=== PATIENT | male | born 1980 | race Caucasian/White ===

== ENCOUNTER 2018-11-14 06:49 | Emergency (ER) | payer BC, OTHER ==
[~2018-11-14] VITALS: Ht 167.6 cm; Wt 77.1 kg
--- NOTE | 2018-11-14 07:14 | ED Abdominal Pain ---
General Chief Complaint: Abdominal/GI Problems Stated Complaint: ABD PAIN Nursing Triage Note: PT COMPLAINING OF ABD PAIN, NAUSEA AND A HEADACHE SINCE YESTERDAY MORNING Sepsis Screen: No Definite Risk Source of Information: Patient Exam Limitations: No Limitations History of Present Illness Date Seen by Provider: Nov 14, 2018 Time Seen by Provider: 19:03 Initial Comments The patient is a pleasant 38-year-old male who presents for evaluation of upper abdominal pain, nausea, and headache since yesterday morning. He reports a history of hyperlipidemia, hypertension, and diabetes. He states he has not taken his diabetes medication or his blood pressure medication in about 2 months. He reports he has not checked his blood sugar recently. He denies any past abdominal surgeries. His pain is primarily in the epigastric region but also somewhat in the right upper quadrant and left upper quadrant. He smokes cigarettes and states that he is slightly short of breath. He denies chest pain, diaphoresis, radiation of abdominal pain, palpitations, dizziness, diarrhea, hematemesis, rectal bleeding, fevers or chills, urinary complaints, or syncope. He states he tried a home Zofran but it did not help and also tried food and cold liquids and this did not seem to help. In fact he states that food seems to make the pain worse. Timing/Duration: 1-2 Days Severity/Quality: Moderate Location: RUQ, LUQ, Epigastric (primarily) Radiation: No Radiation Activities at Onset: None Modifying Factors: Improves With Eating (made the pain worse) Associated Symptoms: Headache, Nausea/Vomiting (nausea only) Allergies and Home Medications Allergies Coded Allergies: No Known Drug Allergies (Unverified , 11/14/18) Patient Home Medication List Home Medication List Reviewed: Yes Review of Systems Review of Systems Constitutional: no symptoms reported EENTM: No Symptoms Reported Respiratory: No Symptoms Reported Cardiovascular: No Symptoms Reported Gastrointestinal: Abdominal Pain, Nausea Genitourinary: No Symptoms Reported Musculoskeletal: no symptoms reported Skin: no symptoms reported Psychiatric/Neurological: Headache Endocrine: No Symptoms Reported Hematologic/Lymphatic: No Symptoms Reported All Other Systems Reviewed Negative Unless Noted: Yes Past Agbhzlq-Zoghpu-Enywua Hx Past Med/Social Hx: Reviewed Nursing Past Med/Soc Hx Patient Social History Alcohol Use: Denies Use Recreational Drug Use: No Smoking Status: Current Everyday Smoker Type Used: Cigarettes 2nd Hand Smoke Exposure: No Recent Foreign Travel: No Contact w/Someone Who Travel: No Recent Infectious Disease Expo: No Recent Hopitalizations: No Physical Abuse: No Sexual Abuse: No Past Medical History Surgeries: No Respiratory: No Cardiac: Yes High Cholesterol, Hypertension Neurological: No Genitourinary: No Gastrointestinal: No Musculoskeletal: No Endocrine: Yes Diabetes, Non-Insulin dep HEENT: No Cancer: No Psychosocial: No Integumentary: No Blood Disorders: No Physical Exam Vital Signs Vital Signs - First Documented 11/14/18 06:56 Temp 98.0 Pulse 105 Resp 18 B/P (MAP) 180/99 (126) Pulse Ox 95 O2 Delivery Room Air Capillary Refill : Less Than 3 Seconds Height/Weight/BMI Height: 5'6.00" Weight: 170lbs. oz. 77.568030qg; BMI Method:Stated General Appearance: WD/WN, no apparent distress HEENT: PERRL/EOMI, normal ENT inspection Neck: non-tender, full range of motion, supple, normal inspection Respiratory: chest non-tender, lungs clear, normal breath sounds, no respiratory distress Cardiovascular: no edema, no gallop, no JVD, no murmur, tachycardia Gastrointestinal: normal bowel sounds, soft, no organomegaly, no pulsatile mass, tenderness (epigastric - moderate, LUQ/RUQ - mild, no guarding, no rigidity) Extremities: normal range of motion, non-tender, no pedal edema Back: normal inspection, no CVA tenderness, no vertebral tenderness 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, no motor/sensory deficits, alert, normal mood/affect, oriented x 3 Skin: normal color, warm/dry Progress/Results/Core Measures Results/Orders Lab Results Laboratory Tests Test 11/14/18 07:10 11/14/18 09:13 11/14/18 10:06 Range/Units White Blood Count 17.6 H 4.3-11.0 10^3/uL Red Blood Count 5.19 4.35-5.85 10^6/uL Hemoglobin 17.5 13.3-17.7 G/DL Hematocrit 46 40-54 % Mean Corpuscular Volume 89 80-99 FL Mean Corpuscular Hemoglobin 34 25-34 PG Mean Corpuscular Hemoglobin Concent 38 H 32-36 G/DL Red Cell Distribution Width 11.6 10.0-14.5 % Platelet Count 272 130-400 10^3/uL Mean Platelet Volume 13.6 H 7.4-10.4 FL Neutrophils (%) (Auto) 78 H 42-75 % Lymphocytes (%) (Auto) 13 12-44 % Monocytes (%) (Auto) 9 0-12 % Eosinophils (%) (Auto) 0 0-10 % Basophils (%) (Auto) 0 0-10 % Neutrophils # (Auto) 13.6 H 1.8-7.8 X 10^3 Lymphocytes # (Auto) 2.2 1.0-4.0 X 10^3 Monocytes # (Auto) 1.6 H 0.0-1.0 X 10^3 Eosinophils # (Auto) 0.0 0.0-0.3 10^3/uL Basophils # (Auto) 0.1 0.0-0.1 10^3/uL Neutrophils % (Manual) 65 % Lymphocytes % (Manual) 13 % Monocytes % (Manual) 11 % Eosinophils % (Manual) 1 % Band Neutrophils 10 % Blood Morphology Comment NORMAL Sodium Level 117 *L 135-145 MMOL/L Potassium Level 3.6 3.6-5.0 MMOL/L Chloride Level 86 L 98-107 MMOL/L Blood Urea Nitrogen 7-18 MG/DL Glucose Level 259 H 70-105 MG/DL Calcium Level 10.2 H 8.5-10.1 MG/DL Corrected Calcium 9.9 8.5-10.1 MG/DL Total Bilirubin 0.7 0.1-1.0 MG/DL Creatine Kinase MB 0.9 <6.6 NG/ML Troponin I < 0.028 <0.028 NG/ML Albumin 4.4 3.2-4.5 GM/DL Amylase Level 84 25-125 U/L Lipase 169 H 8-78 U/L Glucometer 190 H 70-110 MG/DL My Orders Orders - JOVAN COLON DO Comprehensive Metabolic Panel (11/14/18 07:06) Lipase (11/14/18 07:06) Amylase (11/14/18 07:06) Ua Culture If Indicated (11/14/18 07:06) Ed Iv/Invasive Line Start (11/14/18 07:06) Cbc With Automated Diff (11/14/18 07:06) Ct Abdomen/Pelvis W (11/14/18 07:06) Ekg Tracing (11/14/18 07:06) Continuous Ekg Monitoring (11/14/18 07:06) Chest 1 View Ap/Pa Only (11/14/18 07:06) Creatine Kinase Mb (11/14/18 07:10) Ondansetron Injection (Zofran Injectio (11/14/18 07:30) Lidocaine 2% Viscous 15 Ml (Xylocaine Vi (11/14/18 07:30) Antacid Suspension (Mylanta Suspension (11/14/18 07:30) Ns Iv 1000 Ml (Sodium Chloride 0.9%) (11/14/18 07:30) Accucheck Stat ONCE (11/14/18 07:18) Pantoprazole Injection (Protonix Injecti (11/14/18 07:30) Iohexol Injection (Omnipaque 350 Mg/Ml 1 (11/14/18 08:15) Received Contrast (Hold Metformin- Contr (11/14/18 08:15) Sodium Chloride Flush (Catheter Flush Sy (11/14/18 08:15) Ns (Ivpb) (Sodium Chloride 0.9% Ivpb Bag (11/14/18 08:15) Drug Screen Stat (Urine) (11/14/18 08:24) Manual Differential (11/14/18 07:10) Troponin I (11/14/18 07:10) BNP (11/14/18 09:50) Ns Iv 1000 Ml (Sodium Chloride 0.9%) (11/14/18 10:15) Ketorolac Injection (Toradol Injection) (11/14/18 10:15) Medications Given in ED Current Medications Medications Dose Ordered Sig/Hair Route Start Time Stop Time Status Last Admin Dose Admin Al Hydrox/Mg Hydrox/Simethicone 30 ml ONCE ONCE PO 11/14/18 07:30 11/14/18 07:31 DC 11/14/18 07:27 30 ML Iohexol 100 ml ONCE ONCE IV 11/14/18 08:15 11/14/18 08:46 DC 11/14/18 08:13 100 ML Lidocaine HCl 15 ml ONCE ONCE PO 11/14/18 07:30 11/14/18 07:31 DC 11/14/18 07:27 15 ML Ondansetron HCl 4 mg ONCE ONCE IVP 11/14/18 07:30 11/14/18 07:31 DC 11/14/18 07:27 4 MG Pantoprazole 40 mg ONCE ONCE IV 11/14/18 07:30 11/14/18 07:31 DC 11/14/18 07:28 40 MG Sodium Chloride 100 ml ONCE ONCE IV 11/14/18 08:15 11/14/18 08:46 DC 11/14/18 08:13 80 ML Vital Signs/I&O 11/14/18 06:56 Temp 98.0 Pulse 105 Resp 18 B/P (MAP) 180/99 (126) Pulse Ox 95 O2 Delivery Room Air Blood Pressure Mean: 126 Progress Progress Note : Progress Note MED REC#: [id number] PT STATUS: REG ER : 1980 PHYSICIAN: JOVAN COLON DO ADMIT DATE: 11/14/18/ER FS Draft Date of Exam:11/14/18 CT ABDOMEN/PELVIS W PROCEDURE: CT abdomen and pelvis with contrast. TECHNIQUE: Multiple contiguous axial images were obtained through the abdomen and pelvis after administration of intravenous contrast. Auto Exposure Controls were utilized during the CT exam to meet ALARA standards for radiation dose reduction. INDICATION: Left lower quadrant pain and gastric abdominal pain. No prior examination available for comparison. FINDINGS: There is minimal scarring in the lung bases. Heart size is normal. There is fatty infiltration of the liver. The gallbladder is unremarkable. There is no biliary duct dilatation. Spleen is normal. There is a cystic mass posterior distal stomach and just above the pancreas measuring roughly 7.8 x 3.9 cm. There is peripheral calcification along this anteriorly. The pancreas is enlarged and demonstrates surrounding inflammatory change compatible with pancreatitis. The adrenal glands are unremarkable. The kidneys are normal in appearance. Aorta is nonaneurysmal. Bowel gas pattern is nonspecific. The appendix is normal. There is no free air. No ascites. No focal inflammatory changes. Bladder is normal. There is no pelvic mass, adenopathy or free fluid. The osseous structures are unremarkable. IMPRESSION: Findings compatible with acute pancreatitis. There is a well-circumscribed fluid collection above the pancreas posterior to the stomach. This may reflect pseudocysts although there is a partially calcified wall. Other etiology cannot be excluded. Recommend short interval follow up CT in 2 months to assure stability. Diffuse fatty infiltration of liver. No other acute abnormality in the abdomen or pelvis. Dictated on workstation # [id number] Dict: 11/14/18 0822 Trans: 11/14/18 0843 [id number] [id number] Interpreted by: LEONELA SAINZ MD Electronically signed by: @[id number] - Case was originally discussed with Dr. Zuluaga at [facility] who is going to accept the patient however they are on housewives diversion and have no beds so cannot accept the transfer. I then discussed the case with Dr. Cardoza who accepts the patient [facility] at this time. Comment Sinus tachycardia, rate of 107, normal axis, no acute ischemic findings noted, no STEMI, reviewed and interpreted by myself Departure Impression Primary Impression: Acute pancreatitis Additional Impression: Epigastric abdominal pain Disposition: XFER SHT-TRM HOSP Condition: Stable Transfer Time Spoke to Accepting Phy: 10:22 Transfer Progress Notes Patient accepted for transfer by Dr. Cardoza at [facility]. Transfer Time: 10:30 Transfer Facility: [facility] Method of Transfer: EMS Departure-Patient Inst. Referrals: NO,LOCAL PHYSICIAN (PCP) Primary Care Physician JOVAN COLON DO Nov 14, 2018 07:14
[2018-11-14] MEDS ORDERED: ANTACID SUSP 30 ML UDC (MYLANTA) PO ONE (07:30)
[2018-11-14] MEDS ORDERED: NS IV 1000 ML 1,000 ML IV SCH ×2 (07:30→10:15)
[2018-11-14] MEDS ORDERED: LIDOCAINE 2% VISCOUS 15 ML UDC PO ONE (07:30)
[2018-11-14] MEDS ORDERED: ONDANSETRON 4 MG/2 ML (SDV) Z0FRAN IVP ONE (07:30)
[2018-11-14] MEDS ORDERED: PANTOPRAZOLE 40 MG (PROTONIX) VIAL IV ONE (07:30)
[2018-11-14] MEDS ORDERED: HOLD METFORMIN - RECEIVED CONTRAST 20 ML VIAL IV SCH (08:15)
[2018-11-14] MEDS ORDERED: NS 100 ML (IVPB) BAG IV ONE (08:15)
[2018-11-14] MEDS ORDERED: CATHETER FLUSH 10 ML SYR IV PRN (08:15)
[2018-11-14] MEDS ORDERED: IOHEXOL 350 MG/ML 100 ML (OMNIPAQUE 350) VIAL IV ONE (08:15)
--- NOTE | 2018-11-14 08:29 | Diagnostic Imaging Report ---
INDICATION: Abdominal pain. Single frontal view of the chest is obtained. COMPARISON: No previous study is available for comparison at this time. FINDINGS: Heart size and pulmonary vasculature are within normal limits, and the lungs are clear, bilaterally. IMPRESSION: Unremarkable chest. Dictated by: Dictated on workstation # [id number]
--- NOTE | 2018-11-14 08:44 | Diagnostic Imaging Report ---
PROCEDURE: CT abdomen and pelvis with contrast. TECHNIQUE: Multiple contiguous axial images were obtained through the abdomen and pelvis after administration of intravenous contrast. Auto Exposure Controls were utilized during the CT exam to meet ALARA standards for radiation dose reduction. INDICATION: Left lower quadrant pain and gastric abdominal pain. No prior examination available for comparison. FINDINGS: There is minimal scarring in the lung bases. Heart size is normal. There is fatty infiltration of the liver. The gallbladder is unremarkable. There is no biliary duct dilatation. Spleen is normal. There is a cystic mass posterior distal stomach and just above the pancreas measuring roughly 7.8 x 3.9 cm. There is peripheral calcification along this anteriorly. The pancreas is enlarged and demonstrates surrounding inflammatory change compatible with pancreatitis. The adrenal glands are unremarkable. The kidneys are normal in appearance. Aorta is nonaneurysmal. Bowel gas pattern is nonspecific. The appendix is normal. There is no free air. No ascites. No focal inflammatory changes. Bladder is normal. There is no pelvic mass, adenopathy or free fluid. The osseous structures are unremarkable. IMPRESSION: Findings compatible with acute pancreatitis. There is a well-circumscribed fluid collection above the pancreas posterior to the stomach. This may reflect pseudocysts although there is a partially calcified wall. Other etiology cannot be excluded. Recommend short interval follow up CT in 2 months to assure stability. Diffuse fatty infiltration of liver. No other acute abnormality in the abdomen or pelvis. Dictated by: Dictated on workstation # [id number]
[2018-11-14 08:54] LABS: HEMOGLOBIN 17.5 G/DL (13.3-17.7); MEAN CORPUSCULAR HEMOGLOBIN 34 PG (25-34); WHITE BLOOD COUNT 17.6 10^3/uL (4.3-11.0)
[2018-11-14 08:55] LABS: BASOPHILS # (AUTO) 0.1 10^3/uL (0.0-0.1); BASOPHILS % (AUTO) 0 % (0-10); EOSINOPHILS % (AUTO) 0 % (0-10); HEMATOCRIT 46 % (40-54); LYMPHOCYTES # (AUTO) 2.2 X 10^3 (1.0-4.0); LYMPHOCYTES % (AUTO) 13 % (12-44); MEAN CORPUSCULAR HGB CONC 38 G/DL (32-36); MEAN CORPUSCULAR VOLUME 89 FL (80-99); MEAN PLATELET VOLUME 13.6 FL (7.4-10.4); MONOCYTES # (AUTO) 1.6 X 10^3 (0.0-1.0); MONOCYTES % (AUTO) 9 % (0-12); NEUTROPHILS # (AUTO) 13.6 X 10^3 (1.8-7.8); NEUTROPHILS % (AUTO) 78 % (42-75); PLATELET COUNT 272 10^3/uL (130-400); RED CELL DISTRIBUTION WIDTH 11.6 % (10.0-14.5)
[2018-11-14 09:08] LABS: BAND NEUTROPHILS 10 %; EOSINOPHILS % (MANUAL) 1 %; LYMPHOCYTES % (MANUAL) 13 %; MONOCYTES % (MANUAL) 11 %; NEUTROPHILS % (MANUAL) 65 %; RBC MORPH NORMAL
[2018-11-14 09:38] LABS: CREATINE KINASE MB 0.9 NG/ML (<6.6)
[2018-11-14 09:47] LABS: ALBUMIN 4.4 GM/DL (3.2-4.5); AMYLASE 84 U/L (25-125); BILIRUBIN,TOTAL 0.7 MG/DL (0.1-1.0); CALCIUM 10.2 MG/DL (8.5-10.1); CHLORIDE 86 MMOL/L (98-107); GLUCOSE 259 MG/DL (70-105); LIPASE 169 U/L (8-78); POTASSIUM 3.6 MMOL/L (3.6-5.0)
[2018-11-14 09:49] LABS: SODIUM 117 MMOL/L (135-145)
[2018-11-14] MEDS ORDERED: KETOROLAC 30 MG/ML VIAL IVP ONE (10:15)
[2018-11-14 10:30] LABS: BUN/CREATININE RATIO 12; CREATININE SERUM 0.86 MG/DL (0.60-1.30); GFR ESTIMATED > 60
[2018-11-14 10:31] LABS: ALKALINE PHOSPHATASE 96 U/L (40-136)
[2018-11-14 10:32] LABS: AMPHETAMINE SCREEN, URINE NEGATIVE (NEGATIVE); BARBITURATE SCREEN URINE NEGATIVE (NEGATIVE); BENZODIAZEPINES SCREEN URINE NEGATIVE (NEGATIVE); CANNABINOID SCREEN, URINE NEGATIVE (NEGATIVE); COCAINE SCREEN URINE NEGATIVE (NEGATIVE); METHADONE STAT NEGATIVE (NEGATIVE); METHAMPHETAMINE SCREEN URINE S NEGATIVE (NEGATIVE); OPIATE SCREEN URINE NEGATIVE (NEGATIVE); OXYCODONE STAT NEGATIVE (NEGATIVE); PROPOXYPHENE STAT NEGATIVE (NEGATIVE); TRICYCLIC ANTIDEPRESSANTS SCRE NEGATIVE (NEGATIVE)
[2018-11-14 10:33] LABS: BILIRUBIN,URINE NEGATIVE (NEGATIVE); CLARITY,URINE CLEAR; COLOR,URINE YELLOW; GLUCOSE, URINE (UA) 3+ (NEGATIVE); KETONES,URINE 2+ (NEGATIVE); LEUKOCYTE ESTERASE ,URINE NEGATIVE (NEGATIVE); NITRITE,URINE NEGATIVE (NEGATIVE); PH,URINE 5.5 (5-9); PROTEIN,URINE TRACE (NEGATIVE); UROBILINOGEN,URINE 0.2 MG/DL (NORMAL)
[2018-11-14 10:36] LABS: BACTERIA,URINE NEGATIVE /HPF; WBC,URINE RARE /HPF
[2018-11-14 10:37] LABS: SQUAMOUS EPITHELIAL CELL,UR RARE /HPF
[2018-11-14 10:49] VITALS: BP 158/96
== END 2018-11-14 11:10 | disposition short-term general hospital (02) ==
LOC: ER FS 06:53
DX: K85.90 Acute pancreatitis without necrosis or infection, unspecified (principal); I10 Essential (primary) hypertension; E78.00 Pure hypercholesterolemia, unspecified; E11.9 Type 2 diabetes mellitus without complications; F17.210 Nicotine dependence, cigarettes, uncomplicated
CPT/HCPCS: 36415; 71045; 74177; 80053; 80306; 81000; 82150; 82553; 82962; 83690; 83880; 84484; 85007; 85027; 93005

== ENCOUNTER 2019-05-03 15:03 | Inpatient (IN) | payer BC ==
[~2019-05-03] VITALS: Ht 170 cm; Wt 80.2 kg
[2019-05-03] MEDS ORDERED: GLIM4TAB5 PO (15:26)
[2019-05-03] MEDS ORDERED: TRAZ-227 PO (15:26)
[2019-05-03] MEDS ORDERED: FENO48TA10 PO (15:26)
[2019-05-03] MEDS ORDERED: fentaNYL INJECTION 100 MCG/2 ML AMP IVP ONE ×3 (15:45→20:00)
--- NOTE | 2019-05-03 15:45 | ED GI ---
General Chief Complaint: Abdominal/GI Problems Stated Complaint: ABD PAIN Nursing Triage Note: WENT TO [facility] ER YESTERDAY FOR ABD PAIN AND FOUND TO HAVE A MASS IN HIS STOMACH. WAS TO HAVE A MRI BUT THE MACHINE WAS BROKE. HERE TODAY FOR ONGOING LEFT SIDED ABD PAIN. Sepsis Screen: No Definite Risk Source of Information: Patient Exam Limitations: No Limitations History of Present Illness Date Seen by Provider: May 03, 2019 Time Seen by Provider: 15:42 Initial Comments To ER with severe left upper quadrant pain. This began yesterday at about 1 AM. No nausea or vomiting, he was seen at [facility], head CT done, this showed a hypodense mass in the gastrosplenic space that abuts the liver measuring 8 x 4 x 4 cm. Recommendation was given 4 MRI both with and without contrast. He then tried to have MRI yesterday, images were unclear. Repeated MRI today and machine broke. He reports this pain feels similar to the last time he had pancreatitis, he was seen at [facility] at that time. Timing/Duration: 1-2 Days Severity/Quality: Moderate Location: LUQ Radiation: No Radiation Activities at Onset: None Associated Symptoms: No Nausea/Vomiting Allergies and Home Medications Allergies Coded Allergies: No Known Drug Allergies (Unverified , 11/14/18) Patient Home Medication List Home Medication List Reviewed: Yes Review of Systems Review of Systems Constitutional: see HPI EENTM: No Symptoms Reported Respiratory: No Symptoms Reported Gastrointestinal: See HPI, Abdominal Pain Genitourinary: No Symptoms Reported Musculoskeletal: no symptoms reported Skin: no symptoms reported Psychiatric/Neurological: No Symptoms Reported Endocrine: No Symptoms Reported Past Zesrpcn-Lihjmx-Dxnvfm Hx Patient Social History Alcohol Use: Past History Recreational Drug Use: No Smoking Status: Current Everyday Smoker Type Used: Cigarettes 2nd Hand Smoke Exposure: No Recent Foreign Travel: No Contact w/Someone Who Travel: No Recent Infectious Disease Expo: No Recent Hopitalizations: No Past Medical History Surgeries: No Respiratory: No Cardiac: Yes High Cholesterol, Hypertension Neurological: No Genitourinary: No Gastrointestinal: No Musculoskeletal: No Endocrine: Yes Diabetes, Non-Insulin dep HEENT: No Cancer: No Psychosocial: No Integumentary: No Blood Disorders: No Physical Exam Vital Signs Vital Signs - First Documented 05/03/19 15:15 Temp 37.0 Pulse 109 Resp 16 B/P (MAP) 154/90 (111) Pulse Ox 96 O2 Delivery Room Air Capillary Refill : Less Than 3 Seconds Height/Weight/BMI Height: 5'6.00" Weight: 170lbs. oz. 77.005343ej; 27.00 BMI Method:Stated General Appearance: WD/WN, no apparent distress HEENT: PERRL/EOMI, normal ENT inspection Respiratory: no respiratory distress, no accessory muscle use Cardiovascular: no murmur, tachycardia Gastrointestinal: normal bowel sounds, soft, tenderness Extremities: normal range of motion, non-tender Neurologic/Psychiatric: alert, normal mood/affect, oriented x 3 Skin: normal color, warm/dry Progress/Results/Core Measures Results/Orders Lab Results Laboratory Tests Test 05/03/19 15:38 Range/Units White Blood Count 12.2 H 4.3-11.0 10^3/uL Red Blood Count 4.97 4.35-5.85 10^6/uL Hemoglobin 15.1 13.3-17.7 G/DL Hematocrit 39 L 40-54 % Mean Corpuscular Volume 83 80-99 FL Mean Corpuscular Hemoglobin 30 25-34 PG Mean Corpuscular Hemoglobin Concent 43 H 32-36 G/DL Red Cell Distribution Width 12.9 10.0-14.5 % Platelet Count 226 130-400 10^3/uL Mean Platelet Volume 11.0 H 7.4-10.4 FL Neutrophils (%) (Auto) 80 H 42-75 % Lymphocytes (%) (Auto) 7 L 12-44 % Monocytes (%) (Auto) 13 H 0-12 % Eosinophils (%) (Auto) 0 0-10 % Basophils (%) (Auto) 0 0-10 % Neutrophils # (Auto) 9.8 H 1.8-7.8 X 10^3 Lymphocytes # (Auto) 0.8 L 1.0-4.0 X 10^3 Monocytes # (Auto) 1.6 H 0.0-1.0 X 10^3 Eosinophils # (Auto) 0.0 0.0-0.3 10^3/uL Basophils # (Auto) 0.0 0.0-0.1 10^3/uL Neutrophils % (Manual) 80 % Lymphocytes % (Manual) 4 % Monocytes % (Manual) 16 % Blood Morphology Comment NORMAL Sodium Level 124 *L 135-145 MMOL/L Potassium Level 3.4 L 3.6-5.0 MMOL/L Chloride Level 91 L 98-107 MMOL/L Carbon Dioxide Level 21-32 MMOL/L Anion Gap 5-14 MMOL/L Blood Urea Nitrogen 11 7-18 MG/DL Creatinine 1.36 H 0.60-1.30 MG/DL Estimat Glomerular Filtration Rate 58 BUN/Creatinine Ratio 8 Glucose Level 193 H 70-105 MG/DL Calcium Level 9.8 8.5-10.1 MG/DL Corrected Calcium 9.4 8.5-10.1 MG/DL Total Bilirubin 0.7 0.1-1.0 MG/DL Aspartate Amino Transf (AST/SGOT) 76 H 5-34 U/L Alanine Aminotransferase (ALT/SGPT) 34 0-55 U/L Alkaline Phosphatase 188 H 40-136 U/L Total Protein 15.6 H 6.4-8.2 GM/DL Albumin 4.5 3.2-4.5 GM/DL Triglycerides Level 7992 H <150 MG/DL Cholesterol Level 771 H < 200 MG/DL LDL Cholesterol Direct 11 1-129 MG/DL VLDL Cholesterol 1598 H 5-40 MG/DL HDL Cholesterol 16 L 40-60 MG/DL Lipase 93 H 8-78 U/L Serum Alcohol < 40 H <10 MG/DL My Orders Orders - SURINDER PHELPS APRN Cbc With Automated Diff (05/03/19 15:35) Comprehensive Metabolic Panel (05/03/19 15:35) Lipase (05/03/19 15:35) Ed Iv/Invasive Line Start (05/03/19 15:35) Us Abdomen Limited [id number] (05/03/19 15:41) Fentanyl Injection (Sublimaze Injection (05/03/19 15:45) Manual Differential (05/03/19 15:38) Alcohol (05/03/19 16:30) Ns Iv 1000 Ml (Sodium Chloride 0.9%) (05/03/19 16:30) Lipid Panel (05/03/19 17:14) Ketorolac Injection (Toradol Injection) (05/03/19 17:30) Fentanyl Injection (Sublimaze Injection (05/03/19 17:30) Medications Given in ED Current Medications Medications Dose Ordered Sig/Hair Route Start Time Stop Time Status Last Admin Dose Admin Fentanyl Citrate 50 mcg ONCE ONCE IVP 05/03/19 15:45 05/03/19 15:46 DC 05/03/19 15:53 50 MCG Fentanyl Citrate 75 mcg ONCE ONCE IVP 05/03/19 17:30 05/03/19 17:31 DC 05/03/19 18:03 75 MCG Ketorolac Tromethamine 15 mg ONCE ONCE IVP 05/03/19 17:30 05/03/19 17:31 DC 05/03/19 18:03 15 MG Vital Signs/I&O 05/03/19 15:15 Temp 37.0 Pulse 109 Resp 16 B/P (MAP) 154/90 (111) Pulse Ox 96 O2 Delivery Room Air Blood Pressure Mean: 111 Diagnostic Imaging Diagonstic Imaging: Ultrasound Comments NAME: AMANDA VARGAS MED REC#: [id number] PT STATUS: REG ER : 1980 PHYSICIAN: SURINDER PHELPS APRN ADMIT DATE: 05/03/19/ER Draft Date of Exam:05/03/19 US ABDOMEN LIMITED [id number] PROCEDURE: US Abdomen, limited. TECHNIQUE: Multiple real-time grayscale images were obtained over the abdomen in various projections. INDICATION: Right upper quadrant abdominal pain. FINDINGS: There is increased echogenicity throughout the liver. Liver is enlarged measuring 22 cm in length. No focal hepatic abnormality is identified, and the gallbladder has a normal appearance. The pancreas, common bile duct, aorta, and inferior vena cava are obscured due to overlying bowel. Right kidney has a normal appearance, and there is no evidence of ascites. IMPRESSION: Hepatomegaly with steatosis. Dictated on workstation # [id number] Dict: 05/03/19 1634 Trans: 05/03/19 1636 [id number] Interpreted by: REE BENITEZ MD Electronically signed by: Departure Communication (Admissions) Time/Spoke to Admitting Phy: 19:[address] Sony Galeana, will admit to ICU, insulin drip, patient agrees with this plan. 1717-some of the chemistry panel is not back yet. Lab reports that he is severely lipemic so the sample has to be diluted. Impression Primary Impression: Hyperlipidemia Additional Impressions: acute exacerbation of chronic pancreatitis Pancreatic pseudocyst Disposition: ADMITTED INPATIENT Condition: Stable Admissions Decision to Admit Reason: Admit from ER (General) Decision to Admit/Date: May 03, 2019 Time/Decision to Admit Time: 19:16 Departure-Patient Inst. Referrals: RADHA ARAUJO MD (PCP/Family) Primary Care Physician SURINDER PHELPS APRN May 03, 2019 15:45
[2019-05-03 15:51] LABS: BASOPHILS % (AUTO) 0 % (0-10); EOSINOPHILS % (AUTO) 0 % (0-10); LYMPHOCYTES # (AUTO) 0.8 X 10^3 (1.0-4.0); LYMPHOCYTES % (AUTO) 7 % (12-44); MEAN CORPUSCULAR HGB CONC 43 G/DL (32-36); MEAN CORPUSCULAR VOLUME 83 FL (80-99); MONOCYTES # (AUTO) 1.6 X 10^3 (0.0-1.0); MONOCYTES % (AUTO) 13 % (0-12); NEUTROPHILS # (AUTO) 9.8 X 10^3 (1.8-7.8); NEUTROPHILS % (AUTO) 80 % (42-75); PLATELET COUNT 226 10^3/uL (130-400); RED CELL DISTRIBUTION WIDTH 12.9 % (10.0-14.5); WHITE BLOOD COUNT 12.2 10^3/uL (4.3-11.0)
[2019-05-03 16:07] LABS: ALBUMIN 4.5 GM/DL (3.2-4.5); CALCIUM 9.8 MG/DL (8.5-10.1); CHLORIDE 91 MMOL/L (98-107); LIPASE 93 U/L (8-78); POTASSIUM 3.4 MMOL/L (3.6-5.0); TOTAL PROTEIN 15.6 GM/DL (6.4-8.2)
[2019-05-03 16:26] LABS: LYMPHOCYTES % (MANUAL) 4 %; MONOCYTES % (MANUAL) 16 %; NEUTROPHILS % (MANUAL) 80 %; RBC MORPH NORMAL
[2019-05-03 16:30] LABS: ALANINE AMINOTRANSFERASE 34 U/L (0-55); BILIRUBIN,TOTAL 0.7 MG/DL (0.1-1.0); GLUCOSE 193 MG/DL (70-105)
[2019-05-03] MEDS ORDERED: NS IV 1000 ML 1,000 ML IV SCH (16:30)
--- NOTE | 2019-05-03 16:36 | Diagnostic Imaging Report ---
PROCEDURE: US Abdomen, limited. TECHNIQUE: Multiple real-time grayscale images were obtained over the abdomen in various projections. INDICATION: Right upper quadrant abdominal pain. FINDINGS: There is increased echogenicity throughout the liver. Liver is enlarged measuring 22 cm in length. No focal hepatic abnormality is identified, and the gallbladder has a normal appearance. The pancreas, common bile duct, aorta, and inferior vena cava are obscured due to overlying bowel. Right kidney has a normal appearance, and there is no evidence of ascites. IMPRESSION: Hepatomegaly with steatosis. Dictated by: Dictated on workstation # [id number]
[2019-05-03 16:51] LABS: HEMATOCRIT 39 % (40-54); HEMOGLOBIN 15.1 G/DL (13.3-17.7); MEAN CORPUSCULAR HEMOGLOBIN 30 PG (25-34)
[2019-05-03] MEDS ORDERED: KETOROLAC 30 MG/ML VIAL IVP ONE (17:30)
[2019-05-03 17:37] LABS: ALKALINE PHOSPHATASE 188 U/L (40-136); BUN/CREATININE RATIO 8; CREATININE SERUM 1.36 MG/DL (0.60-1.30); GFR ESTIMATED 58
[2019-05-03 17:57] LABS: SODIUM 124 MMOL/L (135-145)
[2019-05-03 17:58] LABS: CHOLESTEROL 771 MG/DL (< 200); HDL CHOLESTEROL 16 MG/DL (40-60)
[2019-05-03 18:43] LABS: TRIGLYCERIDES 7992 MG/DL (<150); VLDL CHOLESTEROL 1598 MG/DL (5-40)
--- NOTE | 2019-05-03 20:25 | Consultation - Surgery ---
KIRILL CABRERA [facility] 05/03/192024: History of Present Illness History of Present Illness Patient Consulted On(alex/time) 05/03/19 19:41 Date Seen by Provider: May 03, 2019 Time Seen by Provider: 19:41 Reason for Visit: acute pancreatitis w/ pseudocyst History of Present Illness This is a 38 y/o male who presents here with diffuse upper abd pain x 2 days after a drinking session. pain is worse w/ movement, palpation of upper abd, and laying on his left side. states sleeping on his back is the only way he can get comfortable. Pt has a long hx of ETOH, smoking, and Methamphetamine use. States the 1st episode of Pancreatitis he experienced was back in 2018 after an episode of heavy drinking. Also reports nausea and vomiting but denies any chills, fevers, constipation, SOB, hematemesis, hematochezia, palpitations, CP, or sx. Reports long standing hx of diarrhea stating "my stools are never solid". Denies hx of hepatitis but states he is unsure if he has ever been tested for it. 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 Pt has been seen for his pain and imaging showed acute pancreatitis with pseudocysts for which pt has been set up for EUS w/ Dr. Lynn (GI). Pt is being admitted to the ICU and general surgery was consulted for management of acute pancreatitis. Allergies and Home Medications Allergies Coded Allergies: No Known Drug Allergies (Unverified , 11/14/18) Home Medications Fenofibrate Nanocrystallized 48 Mg Tablet, 48 MG PO DAILY, (Reported) Glimepiride 4 Mg Tablet, 4 MG PO DAILY, (Reported) Ibuprofen 200 Mg Tablet, 400-600 MG PO Q8H PRN for PAIN-MILD (1-4), (Reported) Ondansetron HCl 4 Mg Tablet, 4 MG PO Q8H PRN for NAUSEA/VOMITING-1ST LINE, (Reported) Tramadol HCl 50 Mg Tablet, 50-100 MG PO Q8H PRN for PAIN-MODERATE (5-7), (Reported) Trazodone HCl 100 Mg Tablet, 100 MG PO HS, (Reported) Past Oiwsfkr-Iwctpo-Jjljqs Hx Patient Social History Alcohol Use: Past History Recreational Drug Use: No Smoking Status: Current Everyday Smoker Type Used: Cigarettes 2nd Hand Smoke Exposure: No Recent Foreign Travel: No Contact w/Someone Who Travel: No Recent Infectious Disease Expo: No Recent Hopitalizations: No Surgeries History of Surgeries: No Respiratory History of Respiratory Disorde: No Cardiovascular History of Cardiac Disorders: Yes Cardiac Disorders: High Cholesterol, Hypertension Neurological History of Neurological Disord: No Genitourinary History of Genitourinary Disor: No Gastrointestinal History of Gastrointestinal Di: No Musculoskeletal History of Musculoskeletal Dis: No Endocrine History of Endocrine Disorders: Yes Endocrine Disorders: Diabetes, Non-Insulin dep HEENT History of HEENT Disorders: No Cancer History of Cancer: No Psychosocial History of Psychiatric Problem: No Integumentary History of Skin or Integumenta: No Blood Transfusions History of Blood Disorders: No Review of Systems-General Constitutional: No chills, No fever Respiratory: No cough, No dyspnea on exertion Cardiovascular: No chest pain, No edema, No palpitations Gastrointestinal: RUQ, LUQ, abdominal pain; No constipation; diarrhea (chronic); No hematemesis; nausea, vomiting Genitourinary: No dysuria, No frequency Musculoskeletal: No back pain Skin: No pruritus, No rash Physical Exam-General Problems Physical Exam Vital Signs Vital Signs - First Documented 05/03/19 15:15 Temp 37.0 Pulse 109 Resp 16 B/P (MAP) 154/90 (111) Pulse Ox 96 O2 Delivery Room Air Capillary Refill : Less Than 3 Seconds General Appearance: WD/WN, no apparent distress, other (sititng up in bed, holding on to upper abd, winces w/ movement) Neck: non-tender, normal inspection Respiratory: chest non-tender, no respiratory distress, no accessory muscle use Cardiovascular: regular rate, rhythm, no edema Gastrointestinal: soft, no pulsatile mass; No distended, No guarding, No rebound; tenderness (to upper abd) Back: normal inspection, no CVA tenderness Extremities: non-tender, normal inspection Neurologic/Psychiatric: alert, oriented x 3 Data Review Labs Laboratory Tests 05/03/19 15:38: White Blood Count 12.2H, Red Blood Count 4.97, Hemoglobin 15.1, Hematocrit 39L, Mean Corpuscular Volume 83, Mean Corpuscular Hemoglobin 30, Mean Corpuscular Hemoglobin Concent 43H, Red Cell Distribution Width 12.9, Platelet Count 226, Mean Platelet Volume 11.0H, Neutrophils (%) (Auto) 80H, Lymphocytes (%) (Auto) 7L, Monocytes (%) (Auto) 13H, Eosinophils (%) (Auto) 0, Basophils (%) (Auto) 0, Neutrophils # (Auto) 9.8H, Lymphocytes # (Auto) 0.8L, Monocytes # (Auto) 1.6H, Eosinophils # (Auto) 0.0, Basophils # (Auto) 0.0, Neutrophils % (Manual) 80, Lymphocytes % (Manual) 4, Monocytes % (Manual) 16, Blood Morphology Comment NORMAL, Sodium Level 124*L, Potassium Level 3.4L, Chloride Level 91L, Carbon Dioxide Level , Anion Gap , Blood Urea Nitrogen 11, Creatinine 1.36H, Estimat Glomerular Filtration Rate 58, BUN/Creatinine Ratio 8, Glucose Level 193H, Calcium Level 9.8, Corrected Calcium 9.4, Total Bilirubin 0.7, Aspartate Amino Transf (AST/SGOT) 76H, Alanine Aminotransferase (ALT/SGPT) 34, Alkaline Phosphatase 188H, Total Protein 15.6H, Albumin 4.5, Triglycerides Level 7992H, Cholesterol Level 771H, LDL Cholesterol Direct 11, VLDL Cholesterol 1598H, HDL Cholesterol 16L, Lipase 93H, Serum Alcohol < 40H Assessment/Plan Assessment/Plan Assessment/Plan Acute pancreatitis w/ fluid collection above the pancreas posterior to the stomach suggestive of pseudocyst per Abd CT on 11/2018, elevated lipase Dyslipidemia, w/ TG of 7992, non-compliant w/ home meds Hepatomegaly with steatosis per CT @ ER on 05/03/2019 Hyponatremia Hyperglecemia Elevated Serum ETOH NPO, aggressive IVF, pain control Monitor electrolytes & keep O2 sat >95% Insulin drip, monitor TG and glucose levels Keep f/u plan w/ Dr. Lynn Will follow RD BROWN DO 05/04/19 8958: History of Present Illness History of Present Illness History of Present Illness upper abdominal pain for 2 days. recent history of alochol. History of pancreatitis and psudocyst. Patient worse in certain positions. Pain severe. Pain medication has helped some. Some nausea and vomiting previously, none today. Denies fever sweats chills shortness of breath or chest pain. Is being set up with Dr. Lynn for EUS. U/s done showing steatosis c hepatomegaly, gb with normal appearance. Allergies and Home Medications Allergies Coded Allergies: No Known Drug Allergies (Unverified , 11/14/18) Home Medications Fenofibrate Nanocrystallized 48 Mg Tablet, 48 MG PO DAILY, (Reported) Glimepiride 4 Mg Tablet, 4 MG PO DAILY, (Reported) Ibuprofen 200 Mg Tablet, 400-600 MG PO Q8H PRN for PAIN-MILD (1-4), (Reported) Ondansetron HCl 4 Mg Tablet, 4 MG PO Q8H PRN for NAUSEA/VOMITING-1ST LINE, (Reported) Tramadol HCl 50 Mg Tablet, 50-100 MG PO Q8H PRN for PAIN-MODERATE (5-7), (Reported) Trazodone HCl 100 Mg Tablet, 100 MG PO HS, (Reported) Patient Home Medication List Home Medication List Reviewed: Yes Past Kapcjuz-Gfdivh-Nnzuyr Hx Reviewed Nursing Assessment Reviewed/Agree w Nursing PMH: Yes Family Medical History Significant Family History: No Pertinent Family Hx Review of Systems-General Constitutional: No chills, No fever EENTM: No blurred vision, No throat swelling Respiratory: No cough, No dyspnea on exertion Cardiovascular: No chest pain Gastrointestinal: RUQ, LUQ, abdominal pain; No constipation; diarrhea (chronic); No hematemesis; nausea, vomiting Genitourinary: No dysuria, No frequency Musculoskeletal: No back pain Skin: No change in color, No change in hair/nails Psychiatric/Neurological: Denies Anxiety, Denies Depressed Physical Exam-General Problems Physical Exam General Appearance: WD/WN, mild distress, other (sititng up in bed, holding on to upper abd, winces w/ movement) HEENT: PERRL/EOMI, normal ENT inspection Neck: non-tender, normal inspection Respiratory: chest non-tender, no respiratory distress, no accessory muscle use Cardiovascular: no edema, tachycardia Gastrointestinal: soft, no pulsatile mass; No distended, No guarding, No rebound; tenderness (to upper abd) Back: normal inspection, no CVA tenderness Extremities: non-tender, normal inspection Neurologic/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: 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 nml as tested, no motor/sensory deficits, alert, normal mood/affect, oriented x 3 Skin: normal color, warm/dry Lymphatic: no adenopathy Assessment/Plan Assessment/Plan Assessment/Plan Acute pancreatitis w/ fluid collection above the pancreas posterior to the stomach suggestive of pseudocyst per Abd CT on 11/2018, elevated lipase Dyslipidemia, w/ TG of 7992, non-compliant w/ home meds Hepatomegaly with steatosis per ultrasound @ ER on 05/03/2019 Hyponatremia Hyperglecemia Elevated Serum ETOH On clear liquids at this time, if worsens needs to be NPO Appears to have psudocyst which best managed with EUS which is in process of b estrella set up. IV Fluids Pain control No general surgical intervention at this time will follow Supervisory-Addendum Brief Verification & Attestation Participated in pt care: history, MDM, physical Personally performed: exam, history, MDM, supervision of care Care discussed with: Medical Student Procedures: n/a Results interpretation: Verified all documentation Verification and Attestation of Medical Student E/M Service A medical student performed and documented this service in my presence. I reviewed and verified all information documented by the medical student and made modifications to such information, when appropriate. I personally performed the physical exam and medical decision making. Rd Brown, May 03, 2019,23:59 KIRILL CABRERA [facility] May 03, 2019 20:25 RD BROWN DO May 04, 2019 16:54
[2019-05-03] MEDS ORDERED: NORMAL SALINE 250 ML ONE (20:52)
[2019-05-03] MEDS ORDERED: inSUlin (REGULAR) HUMAN 1 UNIT/0.01 ML (CHARGE PER UNIT) ONE (20:52)
--- NOTE | 2019-05-03 21:00 | NUR ---
AMANDA VARGAS admitted to room CU9-1, with an admitting diagnosis of HYPERLIPIDEMIA, PANCREATITIS, PANCREATIC PSEUDOCYST , on 05/03/19 from ED via WHEELCHAIR, accompanied by HOSPITAL STAFF. AMANDA VARGAS introduced to surroundings, call light, bed controls, phone, TV, temperature control, lights, meal times, smoking policy, visitor policy, side rail policy, bathrooms and showers. Patient Rights given to patient in the handbook.AMANDA VARGAS verbalizes understanding that [facility] is not responsible for the loss or damage to any personal effects or valuables that are kept in the patients posession during their hospitalization. AMANDA VARGAS verbalizes understanding of Interdisciplinary Patient Education. Patient and/or family were informed about the Rapid Response Team and its purpose.
[2019-05-03] MEDS ORDERED: DEXTROSE 10% IV SOLUTION 1,000 ML IV SCH (21:15)
[2019-05-03] MEDS ORDERED: 1/2 NS IV SOLUTION 1,000 ML IV SCH (21:15)
[2019-05-03] MEDS ORDERED: fentaNYL INJECTION 100 MCG/2 ML AMP IV PRN (21:15)
[2019-05-03] MEDS ORDERED: D5 1/2 NS IV 1,000 ML IV SCH (21:15)
[2019-05-03 21:30] VITALS: BP 142/90
[2019-05-03] MEDS ORDERED: D5 1/2 NS W/KCL 40 MEQ/L 1,000 ML IV ONE (21:43)
[2019-05-03] MEDS: inSUlin REGULAR TPN/DRIP 250 UNITS/NS 250 ML IV SCH ×2 (22:00)
[2019-05-03 22:15] VITALS: BP 134/95
[2019-05-03 22:45] VITALS: BP 132/87
[2019-05-03] MEDS: POTASSIUM CHLORIDE INJ 40 MEQ in D5 NS 1000 ML IV SOLUTION 1,000 ML IV SCH (23:00)
[2019-05-03] MEDS: POTASSIUM CL 10 MEQ/50 ML IVPB (PRE-MIX) IV SCH (23:12)
[2019-05-04] VITALS (22 sets, daily range): BP systolic 100–161; BP diastolic 64–105
--- NOTE | 2019-05-04 00:15 | NUR ---
CALLED E-ICU AND INFORMED DR. FERNÁNDEZ THAT PATIENT HAS BEEN RECEIVING 5OMCG OF FENTANYL Q2HR AND THAT IT IS CURRENTLY 25 MIN BEFORE HE CAN HAVE ANY ADDITIONAL FENTANYL AND AT THIS TIME HE IS DOUBLED OVER IN PAIN AND RATING THIS PAIN 10/10 AND THAT HE ALSO HAS A HEADACHE. RECEIVED ORDER FOR DILAUDID 2MG NOW AND THEN DILAUDID 1MG Q1HR PRN AND MOTRIN 800MG NOW. SEE EMAR FOR DETAILS.
[2019-05-04] MEDS ORDERED: IBUPROFEN 800 MG (MOTRIN) TAB PO ONE ×2 (00:32→02:00)
[2019-05-04] MEDS ORDERED: HYDROmorphone 2 MG/ML VIAL (DILAUDID) ONE (00:33)
[2019-05-04] MEDS: POTASSIUM CL 10 MEQ/50 ML IVPB (PRE-MIX) IV SCH ×3 (00:44→03:37)
[2019-05-04] MEDS ORDERED: HYDROmorphone 2 MG/ML VIAL (DILAUDID) IV ONE (02:00)
[2019-05-04] MEDS: HYDROmorphone 2 MG/ML VIAL (DILAUDID) IV PRN ×4 (03:38→07:57)
[2019-05-04] MEDS ORDERED: RT-ALBUTEROL SULF 2.5 MG/3 ML PRE-MIX VIAL INH PRN (04:00)
[2019-05-04 04:07] LABS: ALANINE AMINOTRANSFERASE 27 U/L (0-55); ALBUMIN 3.5 GM/DL (3.2-4.5); ALKALINE PHOSPHATASE 81 U/L (40-136); BILIRUBIN,TOTAL 0.6 MG/DL (0.1-1.0); BUN/CREATININE RATIO 14; CALCIUM 8.5 MG/DL (8.5-10.1); CHLORIDE 103 MMOL/L (98-107); CHOLESTEROL 505 MG/DL (< 200); CREATININE SERUM 0.73 MG/DL (0.60-1.30); GFR ESTIMATED > 60; GLUCOSE 62 MG/DL (70-105); HDL CHOLESTEROL 15 MG/DL (40-60); LIPASE 124 U/L (8-78); MAGNESIUM 1.5 MG/DL (1.6-2.4); PHOSPHORUS 1.1 MG/DL (2.3-4.7); SODIUM 130 MMOL/L (135-145); TOTAL PROTEIN 8.5 GM/DL (6.4-8.2)
[2019-05-04 04:08] LABS: BASOPHILS % (AUTO) 0 % (0-10); EOSINOPHILS # (AUTO) 0.1 10^3/uL (0.0-0.3); EOSINOPHILS % (AUTO) 0 % (0-10); HEMATOCRIT 37 % (40-54); HEMOGLOBIN 13.5 G/DL (13.3-17.7); LYMPHOCYTES # (AUTO) 3.3 X 10^3 (1.0-4.0); LYMPHOCYTES % (AUTO) 23 % (12-44); MEAN CORPUSCULAR HEMOGLOBIN 31 PG (25-34); MEAN CORPUSCULAR HGB CONC 36 G/DL (32-36); MEAN CORPUSCULAR VOLUME 86 FL (80-99); MONOCYTES # (AUTO) 1.2 X 10^3 (0.0-1.0); MONOCYTES % (AUTO) 8 % (0-12); NEUTROPHILS # (AUTO) 9.8 X 10^3 (1.8-7.8); NEUTROPHILS % (AUTO) 68 % (42-75); PLATELET COUNT 141 10^3/uL (130-400); RED CELL DISTRIBUTION WIDTH 12.8 % (10.0-14.5); WHITE BLOOD COUNT 14.5 10^3/uL (4.3-11.0)
[2019-05-04 04:21] LABS: CARBON DIOXIDE < 10 MMOL/L (21-32)
[2019-05-04 04:34] LABS: TRIGLYCERIDES 4044 MG/DL (<150)
[2019-05-04] MEDS ORDERED: LACTATED RINGERS 1,000 ML IV SCH ×3 (04:45→05:00)
--- NOTE | 2019-05-04 04:50 | Pulmonary Consultation ---
History of Present Illness History of Present Illness Date Seen by Provider: May 04, 2019 Time Seen by Provider: 04:50 Date of Admission Reason for Visit: acute pancreatitis w/ pseudocyst Allergies and Home Medications Allergies Coded Allergies: No Known Drug Allergies (Unverified , 11/14/18) Past Zdinfzl-Razjri-Lzztvp Hx Patient Social History Alcohol Use: Past History Recreational Drug Use: No Smoking Status: Current Everyday Smoker Type Used: Cigarettes 2nd Hand Smoke Exposure: No Recent Foreign Travel: No Contact w/Someone Who Travel: No Recent Infectious Disease Expo: No Recent Hopitalizations: No Physical Abuse: No Sexual Abuse: No Mistreated: No Fear: No Past Medical History Surgeries: No Respiratory: No Cardiac: Yes High Cholesterol, Hypertension Neurological: No Genitourinary: No Gastrointestinal: No Musculoskeletal: No Endocrine: Yes Diabetes, Non-Insulin dep HEENT: No Cancer: No Psychosocial: No Integumentary: No Blood Disorders: No Family Medical History Not obtainable due to adoption (PATIENT WAS ADOPTED AND DOES NOT KNOW FAMILY MEDICAL HX) Sepsis Event Evaluation Height, Weight, BMI Height: 5'6.00" Weight: 170lbs. oz. 77.756948dh; 27.00 BMI Method:Stated Exam Exam Vital Signs Date Time Temp Pulse Resp B/P (MAP) Pulse Ox O2 Delivery O2 Flow Rate FiO2 05/04/19 04:00 106 20 140/92 (108) 93 Room Air 05/04/19 03:39 37.0 109 96 05/04/19 03:00 113 16 129/91 (104) 95 Room Air 05/04/19 02:00 112 17 121/84 (96) 91 Room Air 05/04/19 02:00 37.0 05/04/19 01:00 121 05/04/19 01:00 117 19 161/92 (115) 91 Room Air 05/04/19 00:00 38.6 05/04/19 00:00 124 29 147/104 (118) 96 Room Air 05/03/19 23:15 114 19 93 Room Air 05/03/19 22:45 117 11 132/87 (102) 93 Room Air 05/03/19 22:15 109 24 134/95 (108) 93 Room Air 05/03/19 22:00 112 18 92 Room Air 05/03/19 21:45 112 8 95 Room Air 05/03/19 21:30 112 10 142/90 (107) 97 Room Air 05/03/19 21:15 108 05/03/19 21:00 96 Room Air 05/03/19 21:00 37.5 05/03/19 15:15 37.0 109 16 154/90 (111) 96 Room Air I & O 05/04/19 07:00 Intake Total 1950 ml Output Total 300 ml Balance 1650 ml Height & Weight Height: 5'6.00" Weight: 170lbs. oz. 77.369147vf; 27.00 BMI Method:Stated Capillary Refill: Less Than 3 Seconds Gastrointestinal: soft, no pulsatile mass; No distended, No guarding, No rebound; tenderness (to upper abd) Results Lab Laboratory Tests 05/03/19 15:38 05/04/19 03:13 Assessment/Plan Assessment/Plan MADDIE WING DO May 04, 2019 04:50
[2019-05-04] MEDS ORDERED: WATER (STERILE) FOR INJECTION 10 ML ONE (05:20)
[2019-05-04] MEDS ORDERED: cefTRIAXone 1,000 MG IV (ROCEPHIN) VIAL ONE (05:20)
[2019-05-04] MEDS: cefTRIAXone FOR IV USE 1,000 MG in WATER (STERILE) FOR INJECTION 10 ML IV SCH (05:26)
[2019-05-04] MEDS ORDERED: metroNIDAZOLE 500MG/100ML IVPB 100 ML ONE (05:37)
[2019-05-04] MEDS: POTASSIUM CHLORIDE INJ 40 MEQ in D5 NS 1000 ML IV SOLUTION 1,000 ML IV SCH (05:37)
[2019-05-04] MEDS: metroNIDAZOLE 500MG/100ML IVPB 100 ML IV SCH ×3 (05:48→22:25)
[2019-05-04 05:55] LABS: ABG BASE EXCESS -0.2 MMOL/L (-2.5-2.5); ABG OXYGEN SATURATION 97 % (94-100); ABG PCO2 20 MMHG (35-45); ABG PO2 143 MMHG (79-93); ABG TCO2 21.6 MMOL/L (21.0-31.0)
[2019-05-04 05:56] LABS: ABG PH 7.63 (7.37-7.43)
[2019-05-04 05:57] LABS: ALLENS TEST YES-POS; INSPIRED O2 ROOM AIR; PATIENT TEMP 37.7; VENTILATOR NO
[2019-05-04] MEDS: POTASSIUM CL 10MEQ/50ML IVPB 50 ML IV SCH (06:23)
[2019-05-04] MEDS: KCL 20 MEQ TAB (K-DUR) PO SCH (06:24)
[2019-05-04] MEDS: MAGNESIUM 1 GM/100 ML IVPB 100 ML IV SCH ×3 (06:25→10:15)
[2019-05-04 06:52] LABS: AMPHETAMINE SCREEN, URINE NEGATIVE (NEGATIVE); BARBITURATE SCREEN URINE NEGATIVE (NEGATIVE); BENZODIAZEPINES SCREEN URINE NEGATIVE (NEGATIVE); CANNABINOID SCREEN, URINE NEGATIVE (NEGATIVE); COCAINE SCREEN URINE NEGATIVE (NEGATIVE); METHAMPHETAMINE SCREEN URINE S NEGATIVE (NEGATIVE); OPIATE SCREEN URINE POSITIVE (NEGATIVE); TRICYCLIC ANTIDEPRESSANTS SCRE NEGATIVE (NEGATIVE)
[2019-05-04 06:53] LABS: METHADONE STAT NEGATIVE (NEGATIVE); OXYCODONE STAT NEGATIVE (NEGATIVE); PROPOXYPHENE STAT NEGATIVE (NEGATIVE)
[2019-05-04] MEDS ORDERED: FLU QUADRIvalent (5+ YOA) 2019-2020 (AFLURIA) 0.5 ML IM ONE (07:00)
[2019-05-04] MEDS ORDERED: D5 NS W/KCL 40 MEQ/L 1,000 ML IV SCH (07:30)
--- NOTE | 2019-05-04 07:39 | Diagnostic Imaging Report ---
INDICATION: Pancreatitis. TECHNIQUE: Single view chest 4:07 AM. CORRELATION STUDY: 11/14/2018 FINDINGS: The heart size, mediastinal configuration and pulmonary vascularity are within normal limits. The lungs are clear with no consolidating infiltrate. There is no significant effusion or pneumothorax. IMPRESSION: 1. Negative appearing portable chest. Dictated by: Dictated on workstation # [id number]
[2019-05-04] MEDS: POTASSIUM CHLORIDE IV SCH ×6 (07:57→20:02)
[2019-05-04] MEDS: SODIUM CHLORIDE IV SCH ×6 (07:57→20:02)
[2019-05-04] MEDS: DEXTROSE IV SCH ×6 (07:57→20:02)
[2019-05-04] MEDS ORDERED: ENOXAPARIN 40 MG/0.4 ML (LOVENOX) SYR SC SCH (09:00)
[2019-05-04] MEDS ORDERED: NS IV 1000 ML 1,000 ML IV SCH (09:01)
[2019-05-04] MEDS ORDERED: METOCLOPRAMIDE INJ 10 MG/2 ML (REGLAN) IV PRN (09:15)
[2019-05-04] MEDS ORDERED: ONDANSETRON 4 MG/2 ML (SDV) Z0FRAN IV PRN (09:15)
[2019-05-04] MEDS ORDERED: diphenhydrAMINE 50 MG/ML INJ (BENADRYL) IV PRN (09:15)
[2019-05-04] MEDS ORDERED: NALOXONE 0.4 MG/ML 1 ML (NARCAN) VIAL IV PRN (09:15)
[2019-05-04] MEDS: HYDROmorphone PF INJECTION 10 MG in NS (IVPB) 50 ML IV SCH (10:13)
--- NOTE | 2019-05-04 10:27 | Progress Note - Surgery ---
KIRILL CABRERA [facility] 05/04/19 1027: Subjective Date Seen by a Provider: May 04, 2019 Time Seen by a Provider: 07:35 Subjective/Events-last exam Pt laying down in bed. reports improved pain but states the L sided abd pain "is still there". Per nurse, pt's temperature was 101.2 last night; pt reports having chills as well. He is afebrile at the time of evaluation. Denies any N/V, diarrhea, constipation, or any other sx at this time. Review of Systems General: Chills, Other (fever last night) Pulmonary: No Dyspnea, No Cough Cardiovascular: No: Chest Pain, Palpitations Gastrointestinal: Abdominal Pain; No: Nausea, Vomiting, Diarrhea, Constipation Genitourinary: No Dysuria, No Incontinence Musculoskeletal: No: shoulder pain, back pain Focused Exam Lactate Level 05/04/19 05:10: Lactic Acid Level 1.70 Objective Exam Vital Signs Date Time Temp Pulse Resp B/P (MAP) Pulse Ox O2 Delivery O2 Flow Rate FiO2 05/04/19 10:00 121 21 111/87 (95) 93 Room Air 05/04/19 09:00 99 10 111/84 (93) 90 Room Air 05/04/19 08:00 115 14 138/92 (107) 93 Room Air 05/04/19 08:00 95 Room Air 05/04/19 07:00 107 16 134/85 (101) 92 Room Air 05/04/19 07:00 104 05/04/19 06:00 112 27 95 Room Air 05/04/19 05:00 104 16 124/88 (100) 94 Room Air 05/04/19 04:00 93 Room Air 05/04/19 04:00 106 20 140/92 (108) 93 Room Air 05/04/19 03:39 37.0 109 96 05/04/19 03:00 113 16 129/91 (104) 95 Room Air 05/04/19 02:00 112 17 121/84 (96) 91 Room Air 05/04/19 02:00 37.0 05/04/19 01:00 121 05/04/19 01:00 117 19 161/92 (115) 91 Room Air 05/04/19 00:00 38.6 05/04/19 00:00 124 29 147/104 (118) 96 Room Air 05/03/19 23:15 114 19 93 Room Air 05/03/19 22:45 117 11 132/87 (102) 93 Room Air 05/03/19 22:15 109 24 134/95 (108) 93 Room Air 05/03/19 22:00 112 18 92 Room Air 05/03/19 21:45 112 8 95 Room Air 05/03/19 21:30 112 10 142/90 (107) 97 Room Air 05/03/19 21:15 108 05/03/19 21:00 96 Room Air 05/03/19 21:00 37.5 05/03/19 15:15 37.0 109 16 154/90 (111) 96 Room Air I & O 05/04/19 07:00 Intake Total 3710 ml Output Total 700 ml Balance 3010 ml Capillary Refill : Less Than 3 Seconds General Appearance: No Apparent Distress, WD/WN Neck: Normal Inspection, Non Tender Respiratory: Chest Non Tender, No Accessory Muscle Use, No Respiratory Distress Cardiovascular: Regular Rate, Rhythm Gastrointestinal: soft, no pulsatile mass; No distended, No guarding, No rebound; tenderness (to upper abd, worse on LUQ and epigastrum) Extremity: Normal Inspection, Non Tender Neurologic/Psychiatric: Alert, Oriented x3 Skin: Normal Color, Warm/Dry Lymphatic: No Adenopathy Results Lab Laboratory Tests 05/03/19 15:38: White Blood Count 12.2H, Red Blood Count 4.97, Hemoglobin 15.1, Hematocrit 39L, Mean Corpuscular Volume 83, Mean Corpuscular Hemoglobin 30, Mean Corpuscular Hemoglobin Concent 43H, Red Cell Distribution Width 12.9, Platelet Count 226, Mean Platelet Volume 11.0H, Neutrophils (%) (Auto) 80H, Lymphocytes (%) (Auto) 7L, Monocytes (%) (Auto) 13H, Eosinophils (%) (Auto) 0, Basophils (%) (Auto) 0, Neutrophils # (Auto) 9.8H, Lymphocytes # (Auto) 0.8L, Monocytes # (Auto) 1.6H, Eosinophils # (Auto) 0.0, Basophils # (Auto) 0.0, Neutrophils % (Manual) 80, Lymphocytes % (Manual) 4, Monocytes % (Manual) 16, Blood Morphology Comment NORMAL, Sodium Level 124*L, Potassium Level 3.4L, Chloride Level 91L, Carbon Dioxide Level , Anion Gap , Blood Urea Nitrogen 11, Creatinine 1.36H, Estimat Glomerular Filtration Rate 58, BUN/Creatinine Ratio 8, Glucose Level 193H, Calcium Level 9.8, Corrected Calcium 9.4, Total Bilirubin 0.7, Aspartate Amino Transf (AST/SGOT) 76H, Alanine Aminotransferase (ALT/SGPT) 34, Alkaline Phosphatase 188H, Total Protein 15.6H, Albumin 4.5, Triglycerides Level 7992H, Cholesterol Level 771H, LDL Cholesterol Direct 11, VLDL Cholesterol 1598H, HDL Cholesterol 16L, Lipase 93H, Serum Alcohol < 40H 05/03/19 20:58: Glucometer 228H 05/03/19 22:06: Glucometer 247H 05/03/19 23:02: Glucometer 220H 05/04/19 00:07: Glucometer 160H 05/04/19 01:05: Glucometer 99 05/04/19 02:08: Glucometer 142H 05/04/19 03:05: Glucometer 73 05/04/19 03:13: White Blood Count 14.5H, Red Blood Count 4.35, Hemoglobin 13.5, Hematocrit 37L, Mean Corpuscular Volume 86, Mean Corpuscular Hemoglobin 31, Mean Corpuscular Hemoglobin Concent 36, Red Cell Distribution Width 12.8, Platelet Count 141, Mean Platelet Volume 13.0H, Neutrophils (%) (Auto) 68, Lymphocytes (%) (Auto) 23, Monocytes (%) (Auto) 8, Eosinophils (%) (Auto) 0, Basophils (%) (Auto) 0, Neutrophils # (Auto) 9.8H, Lymphocytes # (Auto) 3.3, Monocytes # (Auto) 1.2H, Eosinophils # (Auto) 0.1, Basophils # (Auto) 0.0, Sodium Level 130L, Potassium Level 4.0, Chloride Level 103, Carbon Dioxide Level < 10*L, Anion Gap 17H, Blood Urea Nitrogen 10, Creatinine 0.73, Estimat Glomerular Filtration Rate > 60, BUN/Creatinine Ratio 14, Glucose Level 62L, Calcium Level 8.5, Corrected Calcium 8.9, Phosphorus Level 1.1L, Magnesium Level 1.5L, Total Bilirubin 0.6, Aspartate Amino Transf (AST/SGOT) 21, Alanine Aminotransferase (ALT/SGPT) 27, Alkaline Phosphatase 81, Total Protein 8.5H, Albumin 3.5, Triglycerides Level 4044H, Cholesterol Level 505H, LDL Cholesterol Direct 42, VLDL Cholesterol , HDL Cholesterol 15L, Amylase Level 74, Lipase 124H 05/04/19 03:36: Glucometer 111H 05/04/19 04:38: Glucometer 95 05/04/19 05:10: Lactic Acid Level 1.70 05/04/19 05:31: Glucometer 74 05/04/19 05:37: Blood Gas Puncture Site RIGHT RADIAL, Blood Gas Patient Temperature 37.7, Arterial Blood pH 7.63*H, Arterial Blood Partial Pressure CO2 20L, Arterial Bl ood Partial Pressure O2 143H, Arterial Blood HCO3 21L, Arterial Blood Total CO2 21.6, Arterial Blood Oxygen Saturation 97, Arterial Blood Base Excess -0.2, Juan Test YES-POS, Blood Gas Ventilator Setting NO, Blood Gas Inspired Oxygen ROOM AIR 05/04/19 06:03: Glucometer 121H 05/04/19 06:30: Urine Opiates Screen POSITIVEH, Urine Oxycodone Screen NEGATIVE, Urine Methadone Screen NEGATIVE, Urine Propoxyphene Screen NEGATIVE, Urine Barbiturates Screen NEGATIVE, Ur Tricyclic Antidepressants Screen NEGATIVE, Urine Phencyclidine Screen NEGATIVE, Urine Amphetamines Screen NEGATIVE, Urine Methamphetamines Screen NEGATIVE, Urine Benzodiazepines Screen NEGATIVE, Urine Cocaine Screen NEGATIVE, Urine Cannabinoids Screen NEGATIVE 05/04/19 06:57: Glucometer 134H 05/04/19 08:17: Glucometer 105 Assessment/Plan Assessment/Plan Assessment/Plan Acute pancreatitis w/ fluid collection above the pancreas posterior to the stomach suggestive of pseudocyst per Abd CT on 11/2018, elevated lipase Febrile episode w/ chills and elevated white count Dyslipidemia Hepatomegaly with steatosis Hyponatremia Hyperglecemia Pain improved lipids trending down started on Flagyl and Rocephin continue IVF, pain control, clear liquid diet Monitor labs Keep f/u plan w/ Dr. Lynn Clinical Quality Measures DVT/VTE Risk/Contraindication: Risk Factor Score Per Nursin RFS Level Per Nursing on Admit: 2=Moderate WATSON BROWN DO 05/04/19 4755: Subjective Subjective/Events-last exam Reports pain same to maybe a little better. Food making worse. WBC up slightly. Has been started on Rocephin and Flagyl. Fever over night. Denies n/v fever sweats chills shortness of breath or chest pain at this time. For MRI today Objective Exam General Appearance: No Apparent Distress, WD/WN HEENT: PERRL/EOMI Neck: Normal Inspection, Non Tender Respiratory: Chest Non Tender, No Accessory Muscle Use, No Respiratory Distress Cardiovascular: Tachycardia Gastrointestinal: soft; No distended, No guarding, No rebound; tenderness (to upper abd, worse on LUQ and epigastrum) Neurologic/Psychiatric: Alert, Oriented x3, No Motor/Sensory Deficits, Normal Mood/Affect, certified drug counselor II-XII Norm as Tested Skin: Normal Color, Warm/Dry Lymphatic: No Adenopathy Assessment/Plan Assessment/Plan Assessment/Plan Acute pancreatitis w/ fluid collection above the pancreas posterior to the stomach suggestive of pseudocyst per Abd CT on 11/2018, elevated lipase Febrile episode w/ chills and elevated white count Dyslipidemia Hepatomegaly with steatosis Hyponatremia Hyperglecemia NPO start diet as pain improves, IV fluids Rocephin/Flagyl GI follow up for pseudocyst being arranged. Supervisory-Addendum Brief Verification & Attestation Participated in pt care: history, MDM, physical Personally performed: exam, history, MDM, supervision of care Care discussed with: Medical Student Procedures: n/a Results interpretation: Verified all documentation Verification and Attestation of Medical Student E/M Service A medical student performed and documented this service in my presence. I reviewed and verified all information documented by the medical student and made modifications to such information, when appropriate. I personally performed the physical exam and medical decision making. Watson Brown, May 04, 2019,17:05 KIRILL CABRERA [facility] May 04, 2019 10:27 WATSON BROWN DO May 04, 2019 17:05
[2019-05-04] MEDS ORDERED: GADOBUTROL 10 MMOL/10 ML (GADAVIST) VIAL IV ONE (11:00)
[2019-05-04] MEDS ORDERED: IBUP-2473 PO (12:30)
[2019-05-04] MEDS ORDERED: ONDA-105 PO (12:41)
[2019-05-04] MEDS ORDERED: TRAM50TA3 PO (12:41)
--- NOTE | 2019-05-04 12:41 | NUR ---
SPOKE WITH THE PT (HE HAD A MED LIST ON HIS PHONE FROM [employer]) WENT THRU THE EXT MED HISTORY AND ALSO CALLED [facility] TO COMPLETE THE MED REC. GLIMEPIRIDE: IT SHOWS ON THE EXT MED HISTORY THE 2MG AND THE 4MG, WHEN I QUESTIONED THE PT HE SAID THAT THE 2MG WAS A MISTAKE AND HE ONLY TAKES THE 4MG. THE DIRECTIONS ON THE EXT MED HISTORY SHOW " 1 TAB BID" HOWEVER THE PT SAYS HE JUST TAKES 1 DAILY. 05-03-2019 TRAMADOL 50MG #40 05-03-2019 ONDANSETRON 2MG #9 BOTH THOSE WERE FILLED AT [facility] YESTERDAY AND THE PT SAID HE JUST TOOK 1 DOSE OF HER MEDICATION. OTC MEDS: IBUPROFEN
--- NOTE | 2019-05-04 12:54 | Diagnostic Imaging Report ---
EXAMINATION: MRI of the abdomen with and without contrast. TECHNIQUE: Multiplanar, multisequence MR images of the abdomen were obtained with and without intravenous contrast. HISTORY: Pancreatic mass, likely pseudocyst. COMPARISON: CT dated 11/14/2018. FINDINGS: There is profound hepatic steatosis. There is persistent stranding about the tail of the pancreas. A small amount of free fluid is also seen extending into the left retroperitoneum and anterior to the left perirenal fascia. This has increased from prior exam. There is a 1.3 x 0.9 cm area of non-enhancement in the pancreatic tail without increased T2 signal likely representing a small area of pancreatic necrosis. No suspicious liver lesions are seen. No surface nodularity. Gallbladder is normal. There is no biliary ductal dilation. There is an 8.8 x 4.2 cm fluid collection associated with the superior aspect of the pancreas likely representing a pseudocyst. This previously measured 8.0 x 4.2 cm. Spleen is normal. Adrenal glands are normal. Kidneys are normal without hydronephrosis. Visualized bowel is normal. No lymphadenopathy is seen. Lung bases are clear. No osseous lesions are seen. IMPRESSION: 1. Increase in stranding about the tail of the pancreas and extending into the left retroperitoneum with a focal area of non-enhancement in the pancreatic tail concerning for necrosis in the setting of pancreatitis. 2. Stable fluid collection about the pancreas consistent with a pseudocyst. 3. Profound hepatic steatosis. Dictated by: Dictated on workstation # [id number]
--- NOTE | 2019-05-04 13:01 | History & Physical-Hospitalist ---
History of Present Illness HPI/Chief Complaint Renard Miranda is a 38-year-old male with past medical history of hypertriglyceridemia, alcohol abuse, chronic pancreatitis, diabetes, who presented with abdominal pain. he reports that the pain is epigastric and radiating to his back. He reports fevers. He reports that he has been drinking alcohol recently. He says that he is drinking about 9 beers per day. He also reports that he has not been following a strict diet for his hypertriglyceridemia. He denies any chest pain or shortness of breath. He denies any nausea or vomiting. He reports chronic diarrhea. Source: patient Exam Limitations: no limitations Date Seen 05/04/19 Time Seen by a Provider: 08:45 Attending Physician Yen Cardoza John M MD Referring Physician Date of Admission May 03, 2019 at 19:19 Home Medications & Allergies Home Medications Reviewed patient Home Medication Reconciliation performed by pharmacy medication reconciliations orthotic technician and/or nursing. Patients Allergies have been reviewed. Allergies Allergies Coded Allergies No Known Drug Allergies (Unverified11/14/18) Past Wjvkfhw-Uaurlh-Boacal Hx Past Med/Social Hx: Reviewed and Corrections made Patient Social History Alcohol Use: Regular Use Recreational Drug Use: No Smoking Status: Current Everyday Smoker Type Used: Cigarettes 2nd Hand Smoke Exposure: No Recent Foreign Travel: No Contact w/other who traveled: No Recent Hopitalizations: No Recent Infectious Disease Expo: No Past Medical History Cardiac: High Cholesterol, Hypertension Endocrine: Diabetes, Non-Insulin dep History of Blood Disorders: No Family History Not obtainable due to adoption (PATIENT WAS ADOPTED AND DOES NOT KNOW FAMILY MEDICAL HX) Review of Systems Constitutional: malaise EENTM: no symptoms reported Respiratory: no symptoms reported Cardiovascular: no symptoms reported Gastrointestinal: abdominal pain Genitourinary: no symptoms reported Musculoskeletal: no symptoms reported Skin: no symptoms reported Psychiatric/Neurological: No Symptoms Reported Physical Exam Physical Exam Vital Signs Vital Signs - First Documented 05/03/19 05/04/19 15:15 10:25 Temp 37.0 Pulse 109 Resp 16 B/P (MAP) 154/90 (111) Pulse Ox 96 O2 Delivery Room Air O2 Flow Rate 2.00 Capillary Refill : Less Than 3 Seconds Height, Weight, BMI Height: 5'6.00" Weight: 170lbs. oz. [id number]; 27.00 BMI Method:Stated General Appearance: WD/WN, Anxious, Mild Distress HEENT: PERRL/EOMI, Pharynx Normal Neck: Normal Inspection, Supple Respiratory: Lungs Clear, Normal Breath Sounds, No Respiratory Distress Cardiovascular: Regular Rate, Rhythm, No Edema, No Murmur Gastrointestinal: Normal Bowel Sounds, Guarding, Tenderness Extremity: Normal Inspection, Non Tender, No Pedal Edema Neurologic/Psychiatric: Alert, Oriented x3, No Motor/Sensory Deficits, Normal Mood/Affect Skin: Normal Color, Warm/Dry Results Results/Procedures Labs Laboratory Tests 05/03/19 15:38 05/04/19 03:13 Patient resulted labs reviewed. Imaging: Reviewed Imaging Report Assessment/Plan Admission Diagnosis acute pancreatitis Admission Status: Inpatient Order (span 2 midnights) Reason for Inpatient Admission: acute pancreatitis requiring further treatment and evaluation Assessment and Plan Acute on chronic pancreatitis hypertriglyceridemia Alcohol abuse fevers lipase elevated and epigastric abdominal pain likely due to a combination of hypertriglyceridemia and alcohol abuse Nothing by mouth IV fluids Pain regimen, transition to CLINICAL DATA MANAGEMENT DIRECTOR Gen. surgery consulted, appreciate assistance Pulmonology consulted, appreciate assistance abdominal MRI ordered Started on insulin drip for hypertriglyceridemia, monitor levels started on ceftriaxone and Flagyl hyponatremia hypophosphatemia Hypomagnesemia Continue to monitor and replace as needed DVT prophylaxis: Lovenox Diagnosis/Problems Diagnosis/Problems (1) Acute pancreatitis Status: Acute (2) Hypertriglyceridemia Status: Acute (3) Alcohol abuse Status: Acute Clinical Quality Measures DVT/VTE Risk/Contraindication: Risk Factor Score Per Nursin RFS Level Per Nursing on Admit: 2=Moderate RAJI ALMANZAR MD May 04, 2019 13:01
[2019-05-05] VITALS (14 sets, daily range): BP systolic 112–146; BP diastolic 70–104
[2019-05-05] MEDS: SODIUM CHLORIDE IV SCH ×2 (03:23)
[2019-05-05] MEDS: DEXTROSE IV SCH ×2 (03:23)
[2019-05-05] MEDS: POTASSIUM CHLORIDE IV SCH ×2 (03:23)
[2019-05-05 03:31] LABS: BASOPHILS % (AUTO) 0 % (0-10); EOSINOPHILS # (AUTO) 0.1 10^3/uL (0.0-0.3); EOSINOPHILS % (AUTO) 1 % (0-10); HEMATOCRIT 38 % (40-54); HEMOGLOBIN 13.6 G/DL (13.3-17.7); LYMPHOCYTES # (AUTO) 1.4 X 10^3 (1.0-4.0); LYMPHOCYTES % (AUTO) 14 % (12-44); MEAN CORPUSCULAR HEMOGLOBIN 31 PG (25-34); MEAN CORPUSCULAR HGB CONC 36 G/DL (32-36); MEAN CORPUSCULAR VOLUME 85 FL (80-99); MEAN PLATELET VOLUME 11.4 FL (7.4-10.4); MONOCYTES # (AUTO) 0.9 X 10^3 (0.0-1.0); MONOCYTES % (AUTO) 8 % (0-12); NEUTROPHILS # (AUTO) 8.1 X 10^3 (1.8-7.8); NEUTROPHILS % (AUTO) 77 % (42-75); PLATELET COUNT 169 10^3/uL (130-400); RED CELL DISTRIBUTION WIDTH 13.5 % (10.0-14.5); WHITE BLOOD COUNT 10.5 10^3/uL (4.3-11.0)
[2019-05-05] MEDS: inSUlin REGULAR TPN/DRIP 250 UNITS/NS 250 ML IV SCH ×2 (03:37)
[2019-05-05] MEDS ORDERED: KETOROLAC 15 MG/ML VIAL ONE (03:39)
[2019-05-05 03:55] LABS: BUN/CREATININE RATIO 4; CALCIUM 8.9 MG/DL (8.5-10.1); CARBON DIOXIDE 16 MMOL/L (21-32); CHLORIDE 103 MMOL/L (98-107); CREATININE SERUM 0.75 MG/DL (0.60-1.30); GFR ESTIMATED > 60; GLUCOSE 101 MG/DL (70-105); LIPASE 31 U/L (8-78); MAGNESIUM 1.7 MG/DL (1.6-2.4); PHOSPHORUS 1.7 MG/DL (2.3-4.7); POTASSIUM 3.9 MMOL/L (3.6-5.0); SODIUM 132 MMOL/L (135-145)
[2019-05-05] MEDS: POTASSIUM CL 10MEQ/50ML IVPB 50 ML IV SCH (03:57)
[2019-05-05] MEDS: MAGNESIUM 1 GM/100 ML IVPB 100 ML IV SCH ×3 (03:58→13:52)
[2019-05-05] MEDS: KCL 20 MEQ TAB (K-DUR) PO SCH (03:58)
[2019-05-05] MEDS: cefTRIAXone FOR IV USE 1,000 MG in WATER (STERILE) FOR INJECTION 10 ML IV SCH (05:16)
[2019-05-05] MEDS: metroNIDAZOLE 500MG/100ML IVPB 100 ML IV SCH ×3 (05:43→16:44)
[2019-05-05] MEDS: HYDROmorphone PF INJECTION 10 MG in NS (IVPB) 50 ML IV SCH (08:33)
--- NOTE | 2019-05-05 08:45 | Diagnostic Imaging Report ---
HISTORY: Pancreatitis, hyperlipidemia, pseudocyst, abdominal pain COMPARISON: 05/04/2019 TECHNIQUE: Single frontal view of the chest FINDINGS: Lung volumes are normal. No focal consolidation is seen. There is no pleural effusion or pneumothorax. The cardiac silhouette is normal in size and contour. IMPRESSION: 1. No acute pulmonary abnormality seen. Dictated by: Dictated on workstation # [id number]
--- NOTE | 2019-05-05 09:34 | Progress Note - Surgery ---
Subjective Time Seen by a Provider: 08:06 Subjective/Events-last exam Pt seen and examined, states his pain is about a 4 out of 10; still mostly on left side. He would like something PO. No other complaints. Review of Systems General: No Chills, No Night Sweats Pulmonary: No Dyspnea, No Cough Cardiovascular: No: Chest Pain, Palpitations Gastrointestinal: Abdominal Pain; No: Nausea, Vomiting Focused Exam Lactate Level 05/04/19 05:10: Lactic Acid Level 1.70 Objective Exam Vital Signs Date Time Temp Pulse Resp B/P (MAP) Pulse Ox O2 Delivery O2 Flow Rate FiO2 05/05/19 09:00 101 14 Room Air 05/05/19 08:00 108 9 119/73 (88) Room Air 05/05/19 07:00 116 05/05/19 07:00 108 13 128/72 (90) Room Air 05/05/19 06:40 36.3 05/05/19 06:00 103 17 125/99 (108) Room Air 05/05/19 05:00 107 12 142/83 (102) Room Air 05/05/19 04:00 94 Room Air 05/05/19 04:00 105 17 131/74 (93) Room Air 05/05/19 03:40 38.5 05/05/19 03:00 118 17 112/70 (84) Room Air 05/05/19 02:00 117 15 128/84 (99) Room Air 05/05/19 01:00 121 20 137/104 (115) Room Air 05/05/19 01:00 115 05/05/19 00:00 94 Room Air 05/05/19 00:00 37.0 05/05/19 00:00 106 15 136/80 (98) 92 Room Air 05/04/19 23:00 122 15 156/94 (114) 91 Room Air 05/04/19 22:00 113 25 122/104 (110) 90 Room Air 05/04/19 21:00 125 17 140/85 (103) 92 Room Air 05/04/19 20:00 105 15 122/76 (91) 90 Room Air 05/04/19 20:00 94 Room Air 05/04/19 19:40 37.2 05/04/19 19:00 103 05/04/19 19:00 105 10 124/100 (108) 95 Room Air 05/04/19 18:00 106 8 149/87 (107) 89 Room Air 05/04/19 17:00 112 11 155/96 (115) 94 Nasal Cannula 2.00 05/04/19 16:30 94 Room Air 05/04/19 16:00 124 27 94 Nasal Cannula 2.00 05/04/19 16:00 36.6 05/04/19 15:00 104 10 117/83 (94) 92 Nasal Cannula 2.00 05/04/19 14:00 37.1 05/04/19 14:00 111 27 100/64 (76) 93 Nasal Cannula 2.00 05/04/19 13:00 110 05/04/19 13:00 111 16 140/99 (113) 93 Nasal Cannula 2.00 05/04/19 12:15 94 Nasal Cannula 2.00 05/04/19 11:00 115 17 157/105 (122) 92 Nasal Cannula 2.00 05/04/19 10:25 Nasal Cannula 2.00 05/04/19 10:00 121 21 111/87 (95) 93 Room Air I & O 05/05/19 07:00 Intake Total 4935 ml Output Total 3100 ml Balance 1835 ml Capillary Refill : Less Than 3 Seconds General Appearance: No Apparent Distress, WD/WN HEENT: PERRL/EOMI Respiratory: Chest Non Tender, Lungs Clear, No Accessory Muscle Use, No Respiratory Distress Cardiovascular: No Murmur, Tachycardia Gastrointestinal: soft; No distended, No guarding, No rebound; tenderness (to upper abd, worse on LUQ and epigastrum) Extremity: No Calf Tenderness, No Pedal Edema Neurologic/Psychiatric: Alert, Oriented x3, Normal Mood/Affect, certified detention deputy II-XII Norm as Tested Results Lab Laboratory Tests 05/04/19 10:21: Glucometer 145H 05/04/19 11:06: Glucometer 223H 05/04/19 12:45: Glucometer 151H 05/04/19 14:20: Glucometer 140H 05/04/19 15:14: Glucometer 108 05/04/19 16:15: Glucometer 81 05/04/19 17:01: Glucometer 94 05/04/19 18:10: Glucometer 138H 05/04/19 19:16: Glucometer 101 05/04/19 20:04: Glucometer 88 05/04/19 21:06: Glucometer 112H 05/04/19 22:15: Glucometer 113H 05/04/19 23:13: Glucometer 81 05/04/19 23:33: Glucometer 98 05/05/19 00:35: Glucometer 100 05/05/19 01:31: Glucometer 98 05/05/19 02:32: Glucometer 113H 05/05/19 03:25: White Blood Count 10.5, Red Blood Count 4.46, Hemoglobin 13.6, Hematocrit 38L, Mean Corpuscular Volume 85, Mean Corpuscular Hemoglobin 31, Mean Corpuscular Hemoglobin Concent 36, Red Cell Distribution Width 13.5, Platelet Count 169, Mean Platelet Volume 11.4H, Neutrophils (%) (Auto) 77H, Lymphocytes (%) (Auto) 14, Monocytes (%) (Auto) 8, Eosinophils (%) (Auto) 1, Basophils (%) (Auto) 0, Neutrophils # (Auto) 8.1H, Lymphocytes # (Auto) 1.4, Monocytes # (Auto) 0.9, Eosinophils # (Auto) 0.1, Basophils # (Auto) 0.0, Sodium Level 132L, Potassium Level 3.9, Chloride Level 103, Carbon Dioxide Level 16L, Anion Gap 13, Blood Urea Nitrogen 3L, Creatinine 0.75, Estimat Glomerular Filtration Rate > 60, BUN/Creatinine Ratio 4, Glucose Level 101, Calcium Level 8.9, Phosphorus Level 1.7L, Magnesium Level 1.7, Triglycerides Level 807#H, Lipase 31 05/05/19 03:26: Glucometer 107 05/05/19 05:45: Glucometer 95 05/05/19 06:36: Glucometer 74 05/05/19 07:28: Glucometer 80 05/05/19 08:37: Glucometer 94 Assessment/Plan Assessment/Plan Assessment/Plan Acute pancreatitis - secondary to Hypertriglyceridemia Pancreatic Pseudocyst Dyslipidemia Hepatomegaly with steatosis Hyponatremia - improving slowly Hyperglecemia - resolved Plan is to continue NPO and start clears once pain is less than a 2, IV fluids, IV ABX, does not need Insulin drip any longer. He will need to see GI (Dr. Lynn) as an outpt for GastroCystotomy. He must control his triglycerides better. MRI showed possible small area of pancreatic necrosis at the tail, inflammation and noted the pseudocyst was slightly larger. Pancreatic enzymes are not elevated; therefore, am not too concerned about the inflammation and possible necrosis seen on MRI (but will monitor). He is going to 4th floor today and told to ambulated at least QID and use IS. Clinical Quality Measures DVT/VTE Risk/Contraindication: Risk Factor Score Per Nursin RFS Level Per Nursing on Admit: 2=Moderate KORIN WESTON DO May 05, 2019 09:34
--- NOTE | 2019-05-05 09:42 | NUR ---
RECEIVED REPORT FROM TIME RECORDERBERTIN PULLIAM
[2019-05-05] MEDS: SENNA W/DOCUSATE (SENOKOT S) TABLET PO SCH (09:52)
[2019-05-05] MEDS: HYDROmorphone 2 MG/ML VIAL (DILAUDID) IV PRN ×3 (09:56→17:04)
--- NOTE | 2019-05-05 10:00 | NUR ---
AFTER CALLING REPORT TO BERTIN MCKEON. PT TRANSPORTED VIA W/C TO ROOM 412 WITHOUT DIFFICULTIES. ALL PT BELONGINGS WITH PATIENTS . NO TELE PER DR ALMANZAR. PT DID REPORT PAIN 7/10 PRIOR TO TRANSPORT AND 1MG DILAUDID GIVEN PER ORDER.
--- NOTE | 2019-05-05 10:04 | NUR ---
received patient in room 412
[2019-05-05] MEDS: LACTATED RINGERS 1,000 ML IV SCH ×2 (10:07→21:27)
--- NOTE | 2019-05-05 10:22 | NUR ---
i have revieed the assessment from icu and agree with it
[2019-05-05] MEDS ORDERED: BISACODYL 10 MG SUPP (DULCOLAX) PR PRN (12:15)
[2019-05-05] MEDS ORDERED: ONDANSETRON 4 MG (ZOFRAN) ORAL DISSOLVE TAB PO PRN (12:15)
[2019-05-05] MEDS ORDERED: SODIUM PHOSPHATE INJ 15 MM in D5W 100 ML IVPB 100 ML IV ONE (12:15)
[2019-05-05] MEDS ORDERED: ONDANSETRON 4 MG/2 ML (SDV) Z0FRAN IV PRN (12:15)
[2019-05-05] MEDS ORDERED: polyethylene glycoL POWDER 17 GM (MIRALAX) PACK PO PRN (12:15)
[2019-05-05] MEDS ORDERED: ACETAMINOPHEN 325 MG TABLET PO PRN (12:15)
[2019-05-05] MEDS ORDERED: ANTACID SUSP 30 ML UDC (MYLANTA) PO PRN (12:15)
--- NOTE | 2019-05-05 12:19 | Progress Note - Hospitalist ---
Subjective HPI/CC On Admission Date Seen by Provider: May 05, 2019 Time Seen by Provider: 08:35 Renard Miranda is a 38-year-old male with past medical history of hypertriglyceridemia, alcohol abuse, chronic pancreatitis, diabetes, who p resented with abdominal pain. he reports that the pain is epigastric and radiating to his back. He reports fevers. He reports that he has been drinking alcohol recently. He says that he is drinking about 9 beers per day. He also reports that he has not been following a strict diet for his hyper triglyceridemia. He denies any chest pain or shortness of breath. He denies any nausea or vomiting. He reports chronic diarrhea. Subjective/Events-last exam He reports that his pain is improved today. He is requesting to try liquids. He denies any nausea or vomiting. He did have a fever this morning. He denies any shortness of breath or cough. He has no other complaints or concerns. Focused Exam Lactate Level 05/04/19 05:10: Lactic Acid Level 1.70 Objective Exam Vital Signs Vital Signs Date Time Temp Pulse Resp B/P (MAP) Pulse Ox O2 Delivery O2 Flow Rate FiO2 05/05/19 11:50 37.3 111 18 137/71 (93) 93 Room Air 05/04/19 17:00 2.00 Capillary Refill : Less Than 3 Seconds General Appearance: No Apparent Distress, WD/WN Respiratory: Lungs Clear, Normal Breath Sounds, No Respiratory Distress Cardiovascular: Regular Rate, Rhythm, No Edema, No Murmur Gastrointestinal: Normal Bowel Sounds, Non Tender, Soft Extremity: Normal Inspection, Non Tender, No Pedal Edema Neurologic/Psychiatric: Alert, Oriented x3, No Motor/Sensory Deficits, Normal Mood/Affect Skin: Other (Diffuse excoriations) Results/Procedures Lab Laboratory Tests 05/05/19 03:25 Patient resulted labs reviewed. Imaging: Reviewed Imaging Report Assessment/Plan Assessment and Plan Assess & Plan/Chief Complaint Acute on chronic pancreatitis hypertriglyceridemia Alcohol abuse fevers MRI revealed a pancreatic pseudocyst, possible small area of necrosis Nothing by mouth, attempt clears if pain improves Continue IV fluids Discontinue PIPE STRESS ENGINEER, pain regimen ordered Gen. surgery consulted, appreciate assistance Triglycerides improved, discontinue insulin drip Continue ceftriaxone and Flagyl Will need follow-up with Dr. Lynn for cystogastrostomy hyponatremia hypophosphatemia Hypomagnesemia Continue to monitor and replace as needed DVT prophylaxis: Lovenox Diagnosis/Problems Diagnosis/Problems (1) Acute pancreatitis Status: Acute (2) Hypertriglyceridemia Status: Acute (3) Alcohol abuse Status: Acute Clinical Quality Measures DVT/VTE Risk/Contraindication: Risk Factor Score Per Nursin RFS Level Per Nursing on Admit: 2=Moderate RAJI ALMANZAR MD May 05, 2019 12:19
[2019-05-05] MEDS: ENOXAPARIN 40 MG/0.4 ML (LOVENOX) SYR SC SCH (12:53)
[2019-05-05] MEDS: LIPASE/AMYLASE/PROTEASE (PANCRELIPASE) 5,000 UNITS CAP PO SCH ×2 (12:54→17:03)
[2019-05-05] MEDS: inSUlin ASPART (NovoLOG) 1 UNIT/0.01 ML (CHARGE PER UNIT) SC SCH ×2 (14:30→21:27)
[2019-05-05] MEDS: diphenhydrAMINE 25 MG TAB (BENADRYL) PO PRN (16:42)
--- NOTE | 2019-05-05 16:52 | NUR ---
PATIENT COMLAINED OF ACID REFLUX WITH PAIN WHEN SWALLOWING. THIS NURSE GAVE MALOX AND BENEDRYL AT THIS TIME.
[2019-05-05] MEDS: DOCUSATE SODIUM 100 MG (COLACE) CAP PO SCH (21:27)
[2019-05-05] MEDS: SENNOSIDES 8.6 MG (SENOKOT) TAB PO SCH (21:27)
[2019-05-05] MEDS: MELATONIN 3 MG TABLET PO PRN (21:27)
[2019-05-06] MEDS: metroNIDAZOLE 500MG/100ML IVPB 100 ML IV SCH ×3 (00:29→16:24)
[2019-05-06 01:03] VITALS: BP 114/71
[2019-05-06] MEDS ORDERED: WATER (STERILE) FOR INJECTION 10 ML ONE (04:14)
[2019-05-06] MEDS ORDERED: cefTRIAXone 1,000 MG IV (ROCEPHIN) VIAL ONE (04:14)
[2019-05-06] MEDS: cefTRIAXone FOR IV USE 1,000 MG in WATER (STERILE) FOR INJECTION 10 ML IV SCH (04:29)
[2019-05-06 04:35] LABS: BASOPHILS % (AUTO) 1 % (0-10); EOSINOPHILS # (AUTO) 0.1 10^3/uL (0.0-0.3); EOSINOPHILS % (AUTO) 2 % (0-10); HEMATOCRIT 37 % (40-54); HEMOGLOBIN 12.7 G/DL (13.3-17.7); LYMPHOCYTES # (AUTO) 1.2 X 10^3 (1.0-4.0); LYMPHOCYTES % (AUTO) 22 % (12-44); MEAN CORPUSCULAR HEMOGLOBIN 31 PG (25-34); MEAN CORPUSCULAR HGB CONC 35 G/DL (32-36); MEAN CORPUSCULAR VOLUME 89 FL (80-99); MEAN PLATELET VOLUME 11.2 FL (7.4-10.4); MONOCYTES # (AUTO) 0.7 X 10^3 (0.0-1.0); MONOCYTES % (AUTO) 12 % (0-12); NEUTROPHILS # (AUTO) 3.4 X 10^3 (1.8-7.8); NEUTROPHILS % (AUTO) 63 % (42-75); PLATELET COUNT 132 10^3/uL (130-400); RED CELL DISTRIBUTION WIDTH 13.3 % (10.0-14.5); WHITE BLOOD COUNT 5.4 10^3/uL (4.3-11.0)
[2019-05-06] MEDS: HYDROmorphone 2 MG/ML VIAL (DILAUDID) IV PRN ×5 (04:36→20:55)
[2019-05-06 04:38] VITALS: BP 124/82
[2019-05-06 04:56] LABS: CARBON DIOXIDE 23 MMOL/L (21-32); CHLORIDE 103 MMOL/L (98-107); POTASSIUM 3.9 MMOL/L (3.6-5.0); SODIUM 137 MMOL/L (135-145)
[2019-05-06 04:57] LABS: BUN/CREATININE RATIO 6; CALCIUM 8.6 MG/DL (8.5-10.1); CREATININE SERUM 0.79 MG/DL (0.60-1.30); GFR ESTIMATED > 60; GLUCOSE 148 MG/DL (70-105); PHOSPHORUS 2.5 MG/DL (2.3-4.7)
[2019-05-06] MEDS: LIPASE/AMYLASE/PROTEASE (PANCRELIPASE) 5,000 UNITS CAP PO SCH ×3 (06:25→16:24)
[2019-05-06] MEDS: inSUlin ASPART (NovoLOG) 1 UNIT/0.01 ML (CHARGE PER UNIT) SC SCH ×4 (06:25→20:31)
[2019-05-06] MEDS: LACTATED RINGERS 1,000 ML IV SCH ×2 (06:25→10:39)
[2019-05-06] MEDS: SENNOSIDES 8.6 MG (SENOKOT) TAB PO SCH ×2 (07:42→20:55)
[2019-05-06] MEDS: SENNA W/DOCUSATE (SENOKOT S) TABLET PO SCH (07:42)
[2019-05-06] MEDS: DOCUSATE SODIUM 100 MG (COLACE) CAP PO SCH ×2 (07:42→20:55)
[2019-05-06 08:00] VITALS: BP 123/85
--- NOTE | 2019-05-06 11:25 | Progress Note - Hospitalist ---
Subjective HPI/CC On Admission Date Seen by Provider: May 06, 2019 Time Seen by Provider: 09:55 Renard Miranda is a 38-year-old male with past medical history of hypertriglyceridemia, alcohol abuse, chronic pancreatitis, diabetes, who p resented with abdominal pain. he reports that the pain is epigastric and radiating to his back. He reports fevers. He reports that he has been drinking alcohol recently. He says that he is drinking about 9 beers per day. He also reports that he has not been following a strict diet for his hyper triglyceridemia. He denies any chest pain or shortness of breath. He denies any nausea or vomiting. He reports chronic diarrhea. Subjective/Events-last exam He says that his pain is improving. He was able to tolerate clear liquids yesterday without any worsening pain, nausea, or vomiting. He has been up and walking. He is constipated. Focused Exam Lactate Level 05/04/19 05:10: Lactic Acid Level 1.70 Objective Exam Vital Signs Vital Signs Date Time Temp Pulse Resp B/P (MAP) Pulse Ox O2 Delivery O2 Flow Rate FiO2 05/06/19 08:40 96 Room Air 05/06/19 08:00 36.6 95 18 123/85 (98) 05/05/19 21:00 2.00 Capillary Refill : Less Than 3 SecondsLess Than 3 Seconds General Appearance: No Apparent Distress, WD/WN Respiratory: Lungs Clear, Normal Breath Sounds, No Respiratory Distress Cardiovascular: Regular Rate, Rhythm, No Edema, No Murmur Gastrointestinal: Normal Bowel Sounds, Soft, Tenderness Extremity: Normal Inspection, Non Tender, No Pedal Edema Neurologic/Psychiatric: Alert, Oriented x3, No Motor/Sensory Deficits, Normal Mood/Affect Skin: Normal Color, Warm/Dry, Other (Diffuse skin excoriations) Results/Procedures Lab Laboratory Tests 05/06/19 04:25 Patient resulted labs reviewed. Imaging: Reviewed Imaging Report Assessment/Plan Assessment and Plan Assess & Plan/Chief Complaint Acute on chronic pancreatitis hypertriglyceridemia Alcohol abuse MRI revealed a pancreatic pseudocyst, possible small area of necrosis Clear liquid diet, advance as tolerated to general Continue IV fluids Continue pain regimen Gen. surgery consulted, appreciate assistance Triglycerides improved, continue fenofibrate Continue ceftriaxone and Flagyl Will need to follow-up with Dr. Lynn for likely cystogastrostomy hyponatremia, resolved hypophosphatemia, resolved hypomagnesemia, resolved fevers, resolved DVT prophylaxis: Lovenox Diagnosis/Problems Diagnosis/Problems (1) Acute pancreatitis Status: Acute (2) Hypertriglyceridemia Status: Acute (3) Alcohol abuse Status: Acute Clinical Quality Measures DVT/VTE Risk/Contraindication: Risk Factor Score Per Nursin RFS Level Per Nursing on Admit: 2=Moderate RAJI ALMANZAR MD May 06, 2019 11:25
[2019-05-06] MEDS ORDERED: FENOFIBRATE, MICRO 67 MG (LOFIBRA) CAPSULE PO NR (11:30)
[2019-05-06 11:31] VITALS: BP 142/63
[2019-05-06] MEDS: ENOXAPARIN 40 MG/0.4 ML (LOVENOX) SYR SC SCH (11:39)
--- NOTE | 2019-05-06 11:42 | Progress Note - Surgery ---
[facility] 05/06/19 1142: Subjective Date Seen by a Provider: May 06, 2019 Time Seen by a Provider: 11:19 Subjective/Events-last exam Patient seen and examined. States that pain is a 6 or 7 on the pain scale. Patient was discontinued on the pain medication pump. Is now receiving pain medication orally and received pain medication approximately 1 hour before visit. Review of Systems General: No Chills, No Other (fevers) Cardiovascular: No: Chest Pain, Palpitations Gastrointestinal: Abdominal Pain; No: Nausea, Vomiting Focused Exam Lactate Level 05/04/19 05:10: Lactic Acid Level 1.70 Objective Exam Vital Signs Date Time Temp Pulse Resp B/P (MAP) Pulse Ox O2 Delivery O2 Flow Rate FiO2 05/06/19 11:31 36.2 92 20 142/63 (89) 95 Room Air 05/06/19 08:40 96 Room Air 05/06/19 08:00 36.6 95 18 123/85 (98) 96 Room Air 05/06/19 04:38 37.2 96 20 124/82 (96) 95 Room Air 05/06/19 01:03 37.0 109 24 114/71 (85) 92 Room Air 05/05/19 23:30 37.0 109 24 114/71 (85) 92 Room Air 05/05/19 21:30 Room Air 05/05/19 21:00 95 Room Air 2.00 05/05/19 19:49 37.2 108 20 136/78 (97) 95 Room Air 05/05/19 15:58 37.1 104 18 146/81 (102) 97 Room Air 05/05/19 11:50 37.3 111 18 137/71 (93) 93 Room Air I & O 05/06/19 07:00 Intake Total 4968 ml Balance 4968 ml Capillary Refill : Less Than 3 SecondsLess Than 3 Seconds General Appearance: No Apparent Distress, WD/WN HEENT: PERRL/EOMI Respiratory: No Accessory Muscle Use, No Respiratory Distress Cardiovascular: Regular Rate, Rhythm, No Edema Gastrointestinal: soft; No distended; tenderness (epigastric and LUQ. travels to his back) Extremity: No Calf Tenderness, No Pedal Edema Neurologic/Psychiatric: Alert, Oriented x3, No Motor/Sensory Deficits, Normal Mood/Affect Skin: Normal Color, Warm/Dry, Other (Diffuse skin excoriations) Results Lab Laboratory Tests 05/05/19 11:44: Glucometer 135H 05/05/19 15:32: Glucometer 164H 05/05/19 20:07: Glucometer 203H 05/06/19 04:25: White Blood Count 5.4, Red Blood Count 4.12L, Hemoglobin 12.7L, Hematocrit 37L, Mean Corpuscular Volume 89, Mean Corpuscular Hemoglobin 31, Mean Corpuscular Hemoglobin Concent 35, Red Cell Distribution Width 13.3, Platelet Count 132, Mean Platelet Volume 11.2H, Neutrophils (%) (Auto) 63, Lymphocytes (%) (Auto) 22, Monocytes (%) (Auto) 12, Eosinophils (%) (Auto) 2, Basophils (%) (Auto) 1, Neutrophils # (Auto) 3.4, Lymphocytes # (Auto) 1.2, Monocytes # (Auto) 0.7, Eosinophils # (Auto) 0.1, Basophils # (Auto) 0.0, Sodium Level 137, Potassium Level 3.9, Chloride Level 103, Carbon Dioxide Level 23, Anion Gap 11, Blood Urea Nitrogen 5L, Creatinine 0.79, Estimat Glomerular Filtration Rate > 60, BUN/Creatinine Ratio 6, Glucose Level 148H, Calcium Level 8.6, Phosphorus Level 2.5, Magnesium Level 2.0 Microbiology 05/04/19 Blood Culture - Preliminary, Resulted No growth 05/04/19 MRSA Screen - Final, Complete MRSA not isolated Assessment/Plan Assessment/Plan Assessment/Plan Acute pancreatitis hypertriglyceridemia Triglycerides yesterday (05/05) were 807. No triglyceride labs were ordered for today as of 1100. Continue pain management Want to continue to work on pain control before we advance diet. Recommend pain to be at or below 2 before diet is advanced. Clinical Quality Measures DVT/VTE Risk/Contraindication: Risk Factor Score Per Nursin RFS Level Per Nursing on Admit: 2=Moderate TELLO GUTIÉRREZ DO 05/06/19 1154: Subjective Time Seen by a Provider: 11:19 Subjective/Events-last exam Pt seen and examined, states pain is worse today because he is not on the continuous pain pump. He does not think pain got worse with liquid diet and is going to get solid food for lunch. Review of Systems General: No Chills Pulmonary: No Dyspnea, No Cough Cardiovascular: No: Chest Pain, Palpitations Gastrointestinal: Abdominal Pain; No: Nausea, Vomiting Objective Exam General Appearance: No Apparent Distress, WD/WN Respiratory: Lungs Clear, Normal Breath Sounds Cardiovascular: Regular Rate, Rhythm, No Murmur Gastrointestinal: soft; No distended; tenderness (epigastric and LUQ. travels to his back) Assessment/Plan Assessment/Plan Assessment/Plan Acute Pancreatitis due to Hypertriglyceridemia Go slowly with diet, no surgical intervention needed at this time. Plan still for outpt f/u with GI specialist to discuss Endoscopic Cystgastrostomy. Supervisory-Addendum Brief Verification & Attestation Participated in pt care: history, MDM, physical Personally performed: exam, history, MDM Care discussed with: Medical Student Procedures: n/a Verification and Attestation of Medical Student E/M Service A medical student performed and documented this service in my presence. I reviewed and verified all information documented by the medical student and made modifications to such information, when appropriate. I personally performed the physical exam and medical decision making. Tello Gutiérrez, May 06, 2019,11:53 TRINI VELAZQUEZ STUD May 06, 2019 11:42 TELLO GUTIÉRREZ DO May 06, 2019 11:54
[2019-05-06 16:00] VITALS: BP 128/87
[2019-05-06 19:43] VITALS: BP 131/82
[2019-05-06] MEDS: FENOFIBRATE 134 MG (LOFIBRA) CAPSULE PO SCH (20:55)
[2019-05-06] MEDS: MELATONIN 3 MG TABLET PO PRN (20:55)
[2019-05-07] VITALS: BP 146/79
[2019-05-07] MEDS: HYDROmorphone 2 MG/ML VIAL (DILAUDID) IV PRN ×4 (00:34→14:44)
[2019-05-07] MEDS: metroNIDAZOLE 500MG/100ML IVPB 100 ML IV SCH ×3 (00:34→16:28)
[2019-05-07] MEDS: LACTATED RINGERS 1,000 ML IV SCH ×5 (01:49→21:31)
[2019-05-07 04:00] VITALS: BP 128/83
[2019-05-07] MEDS ORDERED: cefTRIAXone 1,000 MG IV (ROCEPHIN) VIAL ONE (04:51)
[2019-05-07] MEDS ORDERED: WATER (STERILE) FOR INJECTION 10 ML ONE (04:51)
[2019-05-07] MEDS: cefTRIAXone FOR IV USE 1,000 MG in WATER (STERILE) FOR INJECTION 10 ML IV SCH (05:01)
[2019-05-07 05:02] LABS: BUN/CREATININE RATIO 8; CALCIUM 8.9 MG/DL (8.5-10.1); CARBON DIOXIDE 22 MMOL/L (21-32); CHLORIDE 100 MMOL/L (98-107); GFR ESTIMATED > 60; GLUCOSE 198 MG/DL (70-105); MAGNESIUM 1.7 MG/DL (1.6-2.4); PHOSPHORUS 3.6 MG/DL (2.3-4.7); POTASSIUM 3.7 MMOL/L (3.6-5.0); SODIUM 134 MMOL/L (135-145)
[2019-05-07] MEDS: LIPASE/AMYLASE/PROTEASE (PANCRELIPASE) 5,000 UNITS CAP PO SCH ×3 (06:30→16:28)
[2019-05-07] MEDS: inSUlin ASPART (NovoLOG) 1 UNIT/0.01 ML (CHARGE PER UNIT) SC SCH ×4 (06:31→19:30)
[2019-05-07 08:00] VITALS: BP 128/88
[2019-05-07] MEDS: SENNOSIDES 8.6 MG (SENOKOT) TAB PO SCH ×2 (08:20→21:35)
[2019-05-07] MEDS: SENNA W/DOCUSATE (SENOKOT S) TABLET PO SCH (08:20)
[2019-05-07] MEDS: DOCUSATE SODIUM 100 MG (COLACE) CAP PO SCH ×2 (08:20→21:32)
--- NOTE | 2019-05-07 08:30 | Progress Note - Surgery ---
[facility] 05/07/19 0830: Subjective Date Seen by a Provider: May 07, 2019 Time Seen by a Provider: 07:58 Subjective/Events-last exam Pt has increased pain since having solid food last night. States the pain is now more epigastric whereas before it was more left sided. Rates it as a 9/10 before pain meds and 6/10 afterwards. Also c/o constipation, stating his last BM was 5 days ago. Denies N/V/D, fever, chills, SOB, or CP. Pt has several superficial lesions on face and arms; when asked about these, he states "Every time I take pain meds, it makes me pick at my skin, it happened last time I was on pain meds too". He became tearful explaining this and stated "I'm ashamed of it, it makes me feel like a meth addict". Review of Systems General: No Chills, No Fatigue Pulmonary: No Dyspnea, No Cough Cardiovascular: No: Chest Pain, Palpitations Gastrointestinal: Abdominal Pain, Constipation; No: Nausea, Vomiting, Diarrhea Genitourinary: No Dysuria, No Incontinence Objective Exam Vital Signs Date Time Temp Pulse Resp B/P (MAP) Pulse Ox O2 Delivery O2 Flow Rate FiO2 05/07/19 04:00 36.0 109 22 128/83 (98) 99 Room Air 05/07/19 00:00 36.7 105 22 146/79 (101) 95 Room Air 05/06/19 21:00 95 Room Air 2.00 05/06/19 19:43 36.6 91 20 131/82 (98) 96 Room Air 05/06/19 16:00 37.0 88 20 128/87 (101) 97 Room Air 05/06/19 11:31 36.2 92 20 142/63 (89) 95 Room Air 05/06/19 08:40 96 Room Air I & O 05/07/19 07:00 Intake Total 2280 ml Balance 2280 ml Capillary Refill : Less Than 3 SecondsLess Than 3 Seconds General Appearance: No Apparent Distress, WD/WN, Other (tearful, appears uncomfortable) HEENT: PERRL/EOMI Respiratory: Lungs Clear, Normal Breath Sounds Cardiovascular: Regular Rate, Rhythm, No Murmur Gastrointestinal: soft; No distended; tenderness (epigastric and LUQ. travels to his back) Extremity: No Calf Tenderness, No Pedal Edema Neurologic/Psychiatric: Alert, Oriented x3, No Motor/Sensory Deficits, Normal Mood/Affect Skin: Normal Color, Warm/Dry, Other (Diffuse skin excoriations, more on face and arms) Results Lab Laboratory Tests 05/06/19 11:35: Glucometer 141H 05/06/19 16:01: Glucometer 167H 05/07/19 04:35: Sodium Level 134L, Potassium Level 3.7, Chloride Level 100, Carbon Dioxide Level 22, Anion Gap 12, Blood Urea Nitrogen 6L, Creatinine 0.80, Estimat Glomerular Filtration Rate > 60, BUN/Creatinine Ratio 8, Glucose Level 198H, Calcium Level 8.9, Phosphorus Level 3.6, Magnesium Level 1.7 Microbiology 05/04/19 Blood Culture - Preliminary, Resulted No growth 05/04/19 MRSA Screen - Final, Complete MRSA not isolated Assessment/Plan Assessment/Plan Assessment/Plan Acute pancreatitis w/ fluid collection above the pancreas posterior to the stomach suggestive of pseudocyst per Abd CT on 11/2018 Hepatomegaly with steatosis Hyponatremia Hyperglycemia Dyslipidemia New skin excoriations Increased pain since advancing diet NPO w/ IVF for now until pain is settled Stool softener and increase ambulation for constipation Plan still for outpt f/u with GI specialist to discuss Endoscopic Cystgastrostomy. Clinical Quality Measures DVT/VTE Risk/Contraindication: Risk Factor Score Per Nursin RFS Level Per Nursing on Admit: 2=Moderate RD GALEANA DO 05/07/19 1003: Subjective Subjective/Events-last exam Patient states having worsening pain with eating last night. Pain in epigastric region. Worse with food. Nothing making better. Denies n/v fever sweats chills shortness of breath or chest pain. Skin lesions to face popped up. States has with pain meds. Objective Exam General Appearance: No Apparent Distress HEENT: PERRL/EOMI Respiratory: Chest Non Tender, No Accessory Muscle Use, No Respiratory Distress Cardiovascular: Regular Rate, Rhythm Gastrointestinal: soft; No distended; tenderness (epigastric ) Extremity: Normal Inspection, No Calf Tenderness Neurologic/Psychiatric: Alert, Oriented x3, No Motor/Sensory Deficits, Normal Mood/Affect Skin: Normal Color, Warm/Dry, Other (Diffuse skin excoriations, more on face and arms) Lymphatic: No Adenopathy Assessment/Plan Assessment/Plan Assessment/Plan Acute Pancreatitis due to Hypertriglyceridemia Go slowly with diet if worsening pain to back off to liquids, no surgical intervention needed at this time. Plan still for outpt f/u with GI specialist to discuss Endoscopic Cystgastrostomy. Supervisory-Addendum Brief Verification & Attestation Participated in pt care: history, MDM, physical Personally performed: exam, history, MDM, supervision of care Care discussed with: Medical Student Procedures: n/a Results interpretation: Verified all documentation Verification and Attestation of Medical Student E/M Service A medical student performed and documented this service in my presence. I reviewed and verified all information documented by the medical student and made modifications to such information, when appropriate. I personally performed the physical exam and medical decision making. Rd Galeana, May 07, 2019,10:03 Verification and Attestation of Medical Student E/M Service [facility] May 07, 2019 08:30 RD GALEANA DO May 07, 2019 10:03
[2019-05-07 11:42] VITALS: BP 120/81
[2019-05-07] MEDS: ENOXAPARIN 40 MG/0.4 ML (LOVENOX) SYR SC SCH (12:37)
--- NOTE | 2019-05-07 14:37 | Progress Note - Hospitalist ---
Subjective HPI/CC On Admission Date Seen by Provider: May 07, 2019 Time Seen by Provider: 14:34 Renard Miranda is a 38-year-old male with past medical history of hypertriglyceridemia, alcohol abuse, chronic pancreatitis, diabetes, who p resented with abdominal pain. he reports that the pain is epigastric and radiating to his back. He reports fevers. He reports that he has been drinking alcohol recently. He says that he is drinking about 9 beers per day. He also reports that he has not been following a strict diet for his hyper triglyceridemia. He denies any chest pain or shortness of breath. He denies any nausea or vomiting. He reports chronic diarrhea. Subjective/Events-last exam Pt reports feeling better today but had a rough night with abdominal pain. Was up ambulating in his room when I entered and well appearing. Wants to try lunch but I advised to go slow since he had worsening pain yesterday with food. Objective Exam Vital Signs Vital Signs Date Time Temp Pulse Resp B/P (MAP) Pulse Ox O2 Delivery O2 Flow Rate FiO2 05/07/19 11:51 36.2 05/07/19 11:42 85 16 120/81 (94) 95 Room Air 05/07/19 09:00 2.00 Capillary Refill : Less Than 3 SecondsLess Than 3 Seconds General Appearance: No Apparent Distress, WD/WN Respiratory: Lungs Clear, No Respiratory Distress Cardiovascular: Regular Rate, Rhythm, No Murmur Gastrointestinal: Normal Bowel Sounds, Non Tender, Soft; No Distended Neurologic/Psychiatric: Alert, Oriented x3 Skin: Other (scabs on face) Results/Procedures Lab Laboratory Tests 05/07/19 04:35 Patient resulted labs reviewed. Imaging: Reviewed Imaging Report Assessment/Plan Assessment and Plan Assess & Plan/Chief Complaint Acute on chronic pancreatitis hypertriglyceridemia Alcohol abuse MRI revealed a pancreatic pseudocyst, possible small area of necrosis Diet as tolerated, discussed precautions Continue IV fluids Continue pain regimen Gen. surgery consulted, appreciate assistance Triglycerides improved, continue fenofibrate Continue ceftriaxone and Flagyl Will need to follow-up with Dr. Lynn for likely cystogastrostomy hyponatremia, resolved hypophosphatemia, resolved hypomagnesemia, resolved fevers, resolved DVT prophylaxis: Lovenox Diagnosis/Problems Diagnosis/Problems (1) Pancreatic pseudocyst Status: Acute (2) Acute pancreatitis Status: Acute Qualifiers: Pancreatitis type: other Acute pancreatitis complication: uninfected necrosis Qualified Codes: K85.81 - Other acute pancreatitis with uninfected necrosis (3) Hypertriglyceridemia Status: Acute (4) Hyperlipidemia Status: Acute Qualifiers: Hyperlipidemia type: mixed hyperlipidemia Qualified Codes: E78.2 - Mixed hyperlipidemia Clinical Quality Measures DVT/VTE Risk/Contraindication: Risk Factor Score Per Nursin RFS Level Per Nursing on Admit: 2=Moderate SOURAV JOHANSEN MD May 07, 2019 14:37
[2019-05-07] MEDS ORDERED: FENO134C PO (15:54)
[2019-05-07] MEDS ORDERED: LIPA1CAP19 PO (15:54)
[2019-05-07] MEDS ORDERED: OXC5T PO (15:54)
[2019-05-07 16:00] VITALS: BP 128/85
[2019-05-07 19:41] VITALS: BP 114/78
[2019-05-07] MEDS: FENOFIBRATE 134 MG (LOFIBRA) CAPSULE PO SCH (21:31)
[2019-05-07] MEDS: diphenhydrAMINE 25 MG TAB (BENADRYL) PO PRN (21:32)
[2019-05-07] MEDS: MELATONIN 3 MG TABLET PO PRN (21:32)
[2019-05-08] VITALS: BP 146/71
[2019-05-08] MEDS: metroNIDAZOLE 500MG/100ML IVPB 100 ML IV SCH ×2 (01:23→08:40)
[2019-05-08] MEDS ORDERED: cefTRIAXone 1,000 MG IV (ROCEPHIN) VIAL ONE (03:52)
[2019-05-08] MEDS ORDERED: WATER (STERILE) FOR INJECTION 10 ML ONE (03:52)
[2019-05-08] MEDS: LACTATED RINGERS 1,000 ML IV SCH (04:05)
[2019-05-08] MEDS: cefTRIAXone FOR IV USE 1,000 MG in WATER (STERILE) FOR INJECTION 10 ML IV SCH (04:05)
[2019-05-08] MEDS: HYDROmorphone 2 MG/ML VIAL (DILAUDID) IV PRN (04:11)
[2019-05-08] MEDS: inSUlin ASPART (NovoLOG) 1 UNIT/0.01 ML (CHARGE PER UNIT) SC SCH ×2 (05:42→08:44)
[2019-05-08] MEDS: LIPASE/AMYLASE/PROTEASE (PANCRELIPASE) 5,000 UNITS CAP PO SCH ×2 (05:57→13:07)
[2019-05-08 06:03] LABS: BUN/CREATININE RATIO 10; CALCIUM 9.2 MG/DL (8.5-10.1); CARBON DIOXIDE 23 MMOL/L (21-32); CHLORIDE 102 MMOL/L (98-107); CREATININE SERUM 0.81 MG/DL (0.60-1.30); GFR ESTIMATED > 60; GLUCOSE 155 MG/DL (70-105); MAGNESIUM 1.7 MG/DL (1.6-2.4); PHOSPHORUS 4.3 MG/DL (2.3-4.7); POTASSIUM 3.8 MMOL/L (3.6-5.0); SODIUM 136 MMOL/L (135-145)
[2019-05-08 08:27] VITALS: BP 139/79
--- NOTE | 2019-05-08 08:37 | Progress Note - Surgery ---
[facility] CABRER[facility] 05/08/19 0837: Subjective Date Seen by a Provider: May 08, 2019 Time Seen by a Provider: 07:24 Subjective/Events-last exam Reports his pain is the same as yesterday (). Still c/o constipation despite taking stool softeners and walking around the hospital. Explained how the pain meds can contribute to his constipation. Pt appears restless this AM, but denies any further urge to "pick" at his skin. Denies any N/V, fevers, chills, or any other sx. Reports he ate oatmeal and some eggs this AM and his pain has not gotten worse. Review of Systems General: No Chills, No Fatigue Pulmonary: No Dyspnea, No Cough Cardiovascular: No: Chest Pain, Palpitations Gastrointestinal: Abdominal Pain, Constipation; No: Nausea, Vomiting, Diarrhea Genitourinary: No Dysuria, No Frequency Objective Exam Vital Signs Date Time Temp Pulse Resp B/P (MAP) Pulse Ox O2 Delivery O2 Flow Rate FiO2 05/08/19 08:10 Room Air 05/08/19 00:00 37.0 77 18 146/71 (96) 97 Room Air 05/07/19 21:00 Room Air 05/07/19 19:41 36.7 87 16 114/78 (90) 97 Room Air 05/07/19 16:00 36.5 88 18 128/85 (99) 96 Room Air 05/07/19 11:51 36.2 05/07/19 11:42 36.2 85 16 120/81 (94) 95 Room Air 05/07/19 09:00 95 Room Air 2.00 I & O 05/08/19 07:00 Intake Total 3600 ml Balance 3600 ml Capillary Refill : Less Than 3 SecondsLess Than 3 Seconds General Appearance: No Apparent Distress, WD/WN, Other (appears restless, unabl e to get comfortable in bed ) HEENT: PERRL/EOMI Respiratory: Lungs Clear, No Respiratory Distress Cardiovascular: Regular Rate, Rhythm, No Murmur Gastrointestinal: soft; No distended; tenderness (epigastric ) Extremity: Normal Inspection, No Calf Tenderness Neurologic/Psychiatric: Alert, Oriented x3 Skin: Other (scabs on face, no new scabs observed today.) Lymphatic: No Adenopathy Results Lab Laboratory Tests 2/24/20 10:44: Glucometer 177H 05/07/19 15:29: Glucometer 178H 05/07/19 20:32: Glucometer 206H 05/08/19 04:52: Sodium Level 136, Potassium Level 3.8, Chloride Level 102, Carbon Dioxide Level 23, Anion Gap 11, Blood Urea Nitrogen 8, Creatinine 0.81, Estimat Glomerular Filtration Rate > 60, BUN/Creatinine Ratio 10, Glucose Level 155H, Calcium Level 9.2, Phosphorus Level 4.3, Magnesium Level 1.7 05/08/19 05:17: Glucometer 149H Microbiology 05/04/19 Blood Culture - Preliminary, Resulted No growth 05/04/19 MRSA Screen - Final, Complete MRSA not isolated Assessment/Plan Assessment/Plan Assessment/Plan Acute Pancreatitis w/ pseudocyst formation Hx of ETOH abuse Hx of IVDU Hyperglycemia pt reports persistent Epigastric pain but reports it has not worsened after eating solids this AM; additionally he is easily distractible from pain when answering questions. constipation, likely 2/2 opiates Primary care team working on setting up an appointment for GI specialist to discuss Endoscopic Cystgastrostomy Clear from surgical stand point for d/c Clinical Quality Measures DVT/VTE Risk/Contraindication: Risk Factor Score Per Nursin RFS Level Per Nursing on Admit: 2=Moderate RD GALEANA DO 05/08/19 1612: Subjective Subjective/Events-last exam Patient pain improving. Tolerating diet, but occasionally worsening pain if eats the wrong thing. Denies n/v fever sweats chills shortness of breath or chest pain. 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 Lynn for EUS cystgastrostomy Supervisory-Addendum Brief Verification & Attestation Participated in pt care: history, MDM, physical Personally performed: exam, history, MDM, supervision of care Care discussed with: Medical Student Procedures: n/a Results interpretation: Verified all documentation Verification and Attestation of Medical Student E/M Service A medical student performed and documented this service in my presence. I reviewed and verified all information documented by the medical student and made modifications to such information, when appropriate. I personally performed the physical exam and medical decision making. Rd Galeana, May 08, 2019,16:12 [facility] May 08, 2019 08:37 DR GALEANA DO May 08, 2019 16:12
[2019-05-08] MEDS: SENNOSIDES 8.6 MG (SENOKOT) TAB PO SCH (08:40)
[2019-05-08] MEDS: DOCUSATE SODIUM 100 MG (COLACE) CAP PO SCH (08:40)
[2019-05-08] MEDS: SENNA W/DOCUSATE (SENOKOT S) TABLET PO SCH (08:43)
[2019-05-08] MEDS ORDERED: inSUlin ASPART (NovoLOG) 1 UNIT/0.01 ML (CHARGE PER UNIT) SC SCH (11:30)
[2019-05-08 11:36] VITALS: BP 138/88
--- NOTE | 2019-05-08 11:44 | Discharge Summary ---
Diagnosis/Chief Complaint Date of Admission May 03, 2019 at 19:19 Date of Discharge Discharge Date: May 07, 2019 Admission Diagnosis acute pancreatitis Primary Care Tien Goode MD Discharge Diagnosis (1) Pancreatic pseudocyst Status: Acute (2) Acute pancreatitis Status: Acute (3) Hypertriglyceridemia Status: Acute (4) Hyperlipidemia Status: Acute Discharge Summary Discharge Physical Exam Allergies: Coded Allergies: No Known Drug Allergies (Unverified , 11/14/18) Vitals & I&Os Vital Signs Date Time Temp Pulse Resp B/P (MAP) Pulse Ox O2 Delivery O2 Flow Rate FiO2 05/08/19 11:36 36.3 79 18 138/88 (105) 97 Room Air 05/07/19 09:00 2.00 General Appearance: No Apparent Distress, WD/WN Cardiovascular: Regular Rate, Rhythm, No Murmur Gastrointestinal: Normal Bowel Sounds, Soft Neurologic/Psychiatric: Alert, Oriented x3 Hospital Course Pt was admitted with acute pancreatitis due to hypertriglyceridemia. His triglycerides were near 8000 on arrival and with aggressive management with insulin drip and fenofibrates they improved drastically. His symptoms improved as well. His diet was advanced and he tolerated this well. He was discharged home in stable condition to follow up with Dr Goode in the next week. He is to follow up with Dr Galeana as well. Labs (last 24 hrs) Laboratory Tests 05/07/19 15:29: Glucometer 178H 05/07/19 20:32: Glucometer 206H 05/08/19 04:52: Sodium Level 136, Potassium Level 3.8, Chloride Level 102, Carbon Dioxide Level 23, Anion Gap 11, Blood Urea Nitrogen 8, Creatinine 0.81, Estimat Glomerular Filtration Rate > 60, BUN/Creatinine Ratio 10, Glucose Level 155H, Calcium Level 9.2, Phosphorus Level 4.3, Magnesium Level 1.7 05/08/19 05:17: Glucometer 149H 05/08/19 11:04: Glucometer 190H Microbiology 05/04/19 Blood Culture - Preliminary, Resulted No growth 05/04/19 MRSA Screen - Final, Complete MRSA not isolated Patient resulted labs reviewed. Pending Labs Laboratory Tests 05/08/19 04:52: Sodium Level 136, Potassium Level 3.8, Chloride Level 102, Carbon Dioxide Level 23, Anion Gap 11, Blood Urea Nitrogen 8, Creatinine 0.81, Estimat Glomerular Filtration Rate > 60, BUN/Creatinine Ratio 10, Glucose Level 155, Calcium Level 9.2, Phosphorus Level 4.3, Magnesium Level 1.7 05/08/19 05:17: Glucometer 149 05/08/19 11:04: Glucometer 190 Imaging: Reviewed Imaging Report Discussion & Recommendations Discharge Planning: >30 minutes discharge planning Discharge Home Medications: Active Scripts Active Reported Ondansetron HCl 4 Mg Tablet 4 Mg PO Q8H PRN Tramadol HCl 50 Mg Tablet 50-100 Mg PO Q8H PRN Ibuprofen 200 Mg Tablet 400-600 Mg PO Q8H PRN Fenofibrate (Fenofibrate Nanocrystallized) 48 Mg Tablet 48 Mg PO DAILY Trazodone HCl 100 Mg Tablet 100 Mg PO HS Glimepiride 4 Mg Tablet 4 Mg PO DAILY Instructions to patient/family Please see electronic discharge instructions given to patient. Clinical Quality Measures DVT/VTE Risk/Contraindication: Risk Factor Score Per Nursin RFS Level Per Nursing on Admit: 2=Moderate Problem Qualifiers (1) Acute pancreatitis: Pancreatitis type: other Acute pancreatitis complication: uninfected necrosis Qualified Codes: K85.81 - Other acute pancreatitis with uninfected necrosis (2) Hyperlipidemia: Hyperlipidemia type: mixed hyperlipidemia Qualified Codes: E78.2 - Mixed hyperlipidemia SOURAV JOHANSEN MD May 08, 2019 11:44
--- NOTE | 2019-05-08 11:54 | Discharge Inst-Simple/Standard ---
Discharge Inst-Standard Discharge Medications New, Converted or Re-Newed RX: Transmitted to Pharmacy Patient Instructions/Follow Up Plan of Care/Instructions/FU: Please continue taking her medications as written. Please follow up with Dr. Goode within the next week. Please follow-up with Dr. Galeana as scheduled. Activity as Tolerated: Yes Discharge Diet: Eat Small Frequent Meals (bland food) Return to The Hospital For: Abdominal pain, fever, nausea vomiting, if you feel you're getting worse. SOURAV JOHANSEN MD May 08, 2019 11:54
[2019-05-08] MEDS: ENOXAPARIN 40 MG/0.4 ML (LOVENOX) SYR SC SCH (13:08)
--- NOTE | 2019-05-08 13:53 | NUR ---
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 Patient would also like to be better informed when asking for pain immediate relief.
[2019-05-08 15:10] VITALS: BP 138/88
== END 2019-05-08 15:12 | disposition home or self-care (01) | DRG 439 ==
LOC: EDUNIT# 15:03 → ER 15:04 → ICU 19:19 → 4TH 05-05 10:01
PROVIDERS: ADMIT Internal Medicine; ATTEND Internal Medicine
DX: K85.91 Acute pancreatitis with uninfected necrosis, unspecified (principal); K86.3 Pseudocyst of pancreas; E87.1 Hypo-osmolality and hyponatremia; F10.10 Alcohol abuse, uncomplicated; E78.1 Pure hyperglyceridemia; K76.0 Fatty (change of) liver, not elsewhere classified; I10 Essential (primary) hypertension; E78.00 Pure hypercholesterolemia, unspecified; K52.9 Noninfective gastroenteritis and colitis, unspecified; E83.39 Other disorders of phosphorus metabolism; E83.42 Hypomagnesemia; E11.65 Type 2 diabetes mellitus with hyperglycemia; F17.210 Nicotine dependence, cigarettes, uncomplicated; Z91.14 Patient's other noncompliance with medication regimen; Z79.84 Long term (current) use of oral hypoglycemic drugs; F42.4 Excoriation (skin-picking) disorder
CPT/HCPCS: 36415; 71045; 74183; 76705; 80048; 80053; 80061; 80306; 80320; 82150; 82805; 82962; 83605; 83690; 83735; 84100; 84478; 85007; 85025; 85027; 86301; 87040; 87081; 96361; 96374; 96375; 96376